=== PATIENT | female | born 1965 | race Caucasian/White ===

== ENCOUNTER 2020-01-08 10:26 | Outpatient (CLI) | payer OTHER, SELFPAY ==
--- NOTE | ~2020-01-08 | NM_ITS ---
EXAMINATION: NM valarie stress w perfusion DATE: 01/08/2020 14:28 INDICATION: Dyspnea on exertion. TECHNIQUE: Rest images were obtained following intravenous administration of 8.4 mCi Tc99m tetrofosmi n (Myoview). The patient was infused intravenously with Lexiscan (regadenoson). Then, 26.1 mCi Tc99m tetrofosmin (Myoview) was administered intravenously, and stress images were obtained. Data was recon structed into short axis and horizontal and vertical long axis SPECT images. Gated SPECT images were also obtained. COMPARISON: None. FINDINGS: There is no definite reversible or fixed perfusion abnormality to suggest ischemia or infar ction. There is no segmental wall motion abnormality. Left ventricular ejection fraction measures > 70%. IMPRESSION: 1. No definite ischemia or infarct. 2. Normal left ventricular ejection fraction measuring >70%. Reviewed, dictated and finalized at location A. TEAM MEMBER
--- NOTE | 2020-01-08 10:35 | EST_ITS ---
Patient Info Name: Sumaya Razo Age: 54 years : 1965 Gender: Female Ht: 64 in Wt: 257 lbs BSA: 2.36 m2 Exam Date: 01/08/2020 12:27 PM Exam Location: [facility] Stress Patient Status: Outpatient Admit Date: 01/08/2020 Staff Ordering Physician: Red Altamirano DO Attending Provider: Red Altamirano DO Exercise Technologist: Salina Grey RDCS Exercise Physician: Red Altamirano DO Exam Type: CA stress valarie w NM Study Info Indications R06.09 - Other forms of dyspnea A regadenoson stress test was performed. Summary 1. 1. Negative Lexiscan stress test for ischemic ST changes by ECG criteria. 2. 2. Stable hemodynamics throughout the test. 3. 3. Nuclear scan to follow and will be reported separately. Please correlate with it. 4. 4. Patient informed of the above results. Protocol: Lexiscan Stress ECG Details Stage: REST Duration (min): 7 min : 24 sec HR (bpm): 84 SBP (mmHg): 124 DBP (mmHg): 93 Stage: REST Duration (min): 10 min : 55 sec HR (bpm): 81 SBP (mmHg): 124 DBP (mmHg): 93 Stage: STAGE 1 Duration (min): 0 min : 59 sec HR (bpm): 91 SBP (mmHg): 115 DBP (mmHg): 91 Stage: RECOVERY Duration (min): 1 min : 0 sec HR (bpm): 101 SBP (mmHg): 130 DBP (mmHg): 85 Stage: RECOVERY Duration (min): 2 min : 0 sec HR (bpm): 95 SBP (mmHg): 130 DBP (mmHg): 85 Stage: RECOVERY Duration (min): 3 min : 0 sec HR (bpm): 94 SBP (mmHg): 119 DBP (mmHg): 84 Stage: RECOVERY Duration (min): 3 min : 3 sec HR (bpm): 93 SBP (mmHg): 119 DBP (mmHg): 84 Rest HR: 81 bpm Peak HR: 104 bpm Rest Sys BP: 124 mmHg Peak Sys BP: 130 mmHg Max Pred HR: 165 bpm % Max Pred HR: 63 % Target HR: 140 bpm Max RPP: 13,520 bpm*mmHg Termination Reason: Completed protocol Cardiac Symptoms: Shortness of breath Total Time: 1 min : 0 sec Rest Kaplan BP: 93 mmHg Peak Kaplan BP: 85 mmHg Total Dose: 0.4 mg Resting ECG Sinus rhythm, RBBB. Stress ECG No ST changes. Arrhythmias None. Report Signatures
== END 2020-01-08 10:27 | disposition home or self-care (01) ==
LOC: ANHCARD 10:29
PROVIDERS: PCP Internal Medicine; Visit Provider Internal Medicine Cardiovascular Disease
DX: R06.09 Other forms of dyspnea (principal)
CPT/HCPCS: 78452; 93017; A9502; J2785

== ENCOUNTER 2024-04-07 15:40 | Observation (INO) | payer BC, SELFPAY ==
[2024-04-07] VITALS (7 sets, daily range): BP systolic 116–146; BP diastolic 73–85; PULSE 65–77; RESP 16–18; TEMP 36.4–36.6; O2SAT 97–100
--- NOTE | ~2024-04-07 | CT_ITS ---
EXAMINATION: CT abdomen pelvis w con DATE: 04/07/2024 19:24 INDICATION: diffuse abd pain, N/V TECHNIQUE: Computed tomography (CT) of the abdomen and pelvis was performed with 100 mL Omnipaque-350 intravenous contrast. Automated exposure control and iterative reconstruction technique were employe d. The dose-length product was 1153.00 mGy-cm. COMPARISON: None. FINDINGS: Lower thorax: Unremarkable Liver: Enlarged. Diffuse fatty infiltration. Biliary/Gallbladder: Gallbladder is normal. No bile duct dilation. Pancreas: No mass or duct dilation. Spleen: Normal. Adrenals:No mass. Kidneys: No suspicious mass, obstructing stone, or hydronephrosis. Bilateral simple cysts. Nonobstruc ting left upper pole calcifications measuring up to 6 mm. GI tract: Moderate distal esophageal and gastric wall edema. No small or large bowel dilation. Dilate d hyperemic appendix, with surrounding inflammatory change and fluid. No evidence of appendiceal wall breakdown, abscess, or microperforation. Diverticulosis without diverticulitis. Mesentery/Peritoneum: No ascites, mass, or free air. Retroperitoneum: No mass. Atherosclerotic abdominal aortic and/or arterial calcifications. Pelvis: Normal urinary bladder, uterus, and left ovary. The right ovary is not confidently visualized . Soft Tissues: Anterior abdominal wall diastases resulting in a large anterior wid[place] hernia contai linda a portion of the stomach and nondilated loops of large and small bowel. Bones: No acute osseous finding. IMPRESSION: Hepatomegaly with steatosis. Moderate esophagitis/gastritis. Acute uncomplicated appendicitis. Large anterior pelvic wall hernia containing nonobstructed loops of large and small bowel and a porti on of the stomach. Reviewed, dictated and finalized at location K. IMPRESSION: Hepatomegaly with steatosis. Moderate esophagitis/gastritis. Acute uncomplicated appendicitis. Large anterior pelvic wall hernia containing nonobstructed loops of large and s mall bowel and a portion of the stomach.
--- NOTE | 2024-04-07 15:49 | ED.ABDPAIN ---
HPI - Abdominal Pain General Chief Complaint: Abdominal Pain <WILTON Johnson Last Filed: 04/07/24 15:58> Stated Complaint: abd pain <WILTON Johnson Last Filed: 04/07/24 15:58> Time Seen by Provider: 04/07/24 15:49 <WILTON Johnson Last Filed: 04/07/24 15:58> Focused HPI: Patient is a 58 y/o female, with pmh of diverticulitis, ventral hernia, sigmoid colectomy in 2019, who presents to the ED with c/o abdominal pain. Patient reports pain became 3 days ago. Present diffusely throughout abdomen. States abdomen feels very bloated and firm. Reports pain worse yesterday, associated with N/V. Still feels nauseous currently. Took Tramadol last night, provided some relief. Took Aleve @ 230pm today. Last had a BM this morning, diarrhea, after using laxative suppository yesterday. Denies rectal bleeding, melena. Denies urinary complaints. GENERAL: Well-appearing, obese with BMI of 37.8, and in no acute distress. HEAD: Normocephalic, atraumatic. CHEST: Clear to auscultation. ?No respiratory distress. HEART: Regular rate and rhythm.? ABD: Diffuse tenderness over gia lateral edges of abdomen, suprapubic region, no rebound. Normoactive BS. NEURO: ?Alert and oriented x3. Patient screened in triage and initial orders placed.? ?Additional care and disposition to be based upon?diagnostic testing and treatment. <WILTON Johnson Last Filed: 04/07/24 15:58> Source: patient <WILTON Johnson Last Filed: 04/07/24 15:58> Mode of arrival: ambulatory <WILTON Johnson Last Filed: 04/07/24 15:58> Limitations: no limitations <WILTON Johnson Last Filed: 04/07/24 15:58> History of Present Illness HPI narrative: Agree with the above note. Upon my evaluation, patient is stating the pain is mostly in her lower abdomen and sides. She states her abdomen felt bloated earlier but feels softer now. She denies dysuria, hematuria, fever. She states her pain is controlled after taking Aleve around 2:30 p.m. today. She is not currently having any nausea. Her prior colectomy and hernia repair were at [facility]. <Lissette Arreola PA-C - Last Filed: 04/07/24 20:16> Related Data Home Medications: Home Medications Medication Instructions Recorded Confirmed magnesium hydroxide 400 mg/5 mL 5 ml PO DAILY PRN 01/07/20 09/26/23 oral suspension (Milk of Magnesia) naproxen sodium 220 mg tablet 220 mg PO Q8H 05/27/20 09/26/23 (Aleve) valerian root 100 mg capsule 100 mg PO DAILY 09/20/20 09/26/23 <Xochitl Trujillo PA-C - Last Filed: 04/07/24 15:58> Allergies/Adverse Reactions: Allergies Allergy/AdvReac Type Severity Reaction Status Date / Time levofloxacin Allergy Unknown Anaphylaxis Verified 04/07/24 17:04 citalopram [From Celexa] AdvReac Intermediate Dizziness Verified 04/07/24 17:04 <Xochitl Trujillo PA-C - Last Filed: 04/07/24 15:58> Review of Systems Review of Systems: CONSTITUTIONAL: Denies fever, chills, or sweats. EYES: Denies visual changes, redness, or discharge. ENT: Denies rhinorrhea, congestion, sore throat, or otalgia. CARDIOVASCULAR: Denies chest pain, palpitations, or edema. RESPIRATORY: Denies cough or dyspnea. GASTROINTESTINAL: See HPI GENITOURINARY: Denies dysuria or hematuria. SKIN: Denies rash or itching. MUSCULOSKELETAL: Denies back pain, joint pain, or myalgia. NEUROLOGIC: Denies headache, numbness, or weakness. PSYCHIATRIC: Denies anxiety or depression. <Lissette Arreola PA-C - Last Filed: 04/07/24 20:16> [facility] Past Medical History Medical History: Medical History Arthritis Colitis History of migraine headaches History of pilonidal cyst Hypertension Weight loss counseling, encounter for <Xochitl Trujillo PA-C - Last Filed: 04/07/24 15:58> Surgical History Surgical History: Surgical
--- NOTE | 2024-04-07 16:11 | PC.NURSE ---
Ozempic shot taken on sunday. Pt states has been on medication for 1year now.
[2024-04-07 16:27] LABS: Basophils Absolute Auto 0.1 K/mm3 (0.0-0.1); Basophils Percent Auto 0.5 % (0.2-1.2); Eosinophils Absolute Auto 0.2 K/mm3 (0-0.3); Eosinophils Percent Auto 1.4 % (0-4.4); Hematocrit 51.3 % (37.0-47.0); Hemoglobin 17.5 g/dL (12.0-15.0); Immature Granulocyte Absolute 0.04 K/mm3 (0.00-0.031); Immature Granulocyte Percent A 0.3 % (0-0.5); Lymphocytes Percent Auto 22.4 % (18.3-44.2); Mean Corpuscular HGB Conc 34.1 g/dl (32-36); Mean Corpuscular Hemoglobin 32.2 pg (26-34); Mean Corpuscular Volume 94.3 fl (80-100); Mean Platelet Volume 10.2 fl (7.4-10.4); Monocytes Absolute Auto 1.1 K/mm3 (0.1-0.6); Neutrophils Percent Auto 67.4 % (45.5-73.1); Platelet Count Result 263 k/mm3 (150-375); Red Blood Count 5.44 M/mm3 (4.2-5.4); Red Cell Distribution Width 13.2 % (11.5-14.5); White Blood Count 13.4 K/mm3 (4.5-10.0)
[2024-04-07 16:29] LABS: Appearance Urine Clear (Clear); Bilirubin Urine Negative (Negative); Blood Urine Negative (Negative); Color Urine Yellow (Yellow); Glucose Urine UA 3+ mg/dL (Negative); Ketones Urine Negative (Negative); Leukocyte Esterase Ur Negative LEU/UL (Negative); Nitrate Urine Negative (Negative); Protein Urine Negative (Negative); Specific Grav Ur 1.014 (1.001-1.035); Urobilinogen Urine 0.2 mg/dL (<2.0); pH Urine 6.5 (5.0-9.0)
[2024-04-07 16:38] LABS: Lactic Acid Reflex 2.1 mmol/L (0.7-2.0)
[2024-04-07 17:14] LABS: Add Urine Microscopic? NO
[2024-04-07] MEDS: SODIUM CHLORIDE 0.9% IV 1,000 ML 999 ML IV CONT (17:20)
[2024-04-07 18:36] LABS: Alanine Aminotransferase 16 U/L (6-35); Albumin Level 3.8 g/dL (3.5-5.1); Alkaline Phosphatase 56 U/L (38-126); Anion Gap 5 mmol/L (4-12); Aspartate Amino Transferase 22 U/L (14-36); Bilirubin,Total 0.8 mg/dL (0.2-1.3); Blood Urea Nitrogen 19 mg/dL (7-17); Calcium 9.2 mg/dL (8.4-10.2); Carbon Dioxide 27 mmol/L (22-30); Chloride 106 mmol/L (98-107); Estimated CRCL calculation 86 ml/min; Estimated Glomerular Filt Rate > 60; Glucose 91 mg/dL (65-110); Lipase 584 U/L (23-300); Potassium 3.6 mmol/L (3.4-5.0); Sodium 138 mmol/L (137-145)
--- NOTE | 2024-04-07 19:10 | PC.NURSE ---
Report given to MILDRED Rayo
[2024-04-07 19:25] LABS: Reflex Lactic Acid Yes or No Add Lactic
[2024-04-07] MEDS: PIPERACILLN/TAZ 3.375GM/NS50ML 3.375 GM/50 ML BAG IVPB (20:22)
--- NOTE | 2024-04-07 20:40 | PM.IMHP ---
H&P: HPI History of Present Illness Date/Time: 04/07/24 20:40 Chief Complaint: abdominal pain Narrative: This is a 58-year-old female with past medical history significant for type diabetes mellitus, hypertension, migraine headaches. Patient presents to the emergency room with abdominal pain for the last 3 days worsening, constipation and diarrhea, chills, nausea, poor per orally intake, poor appetite. Patient also has history of diverticulitis status post sigmoidectomy. Initially attributed her abdominal pain to diverticular disease. In emergency room preliminary workup was significant for CT abdomen and pelvis showed acute appendicitis. Patient has been admitted for further evaluation management and treatment EXAMINATION: CT abdomen pelvis w con DATE: 04/07/2024 19:24 INDICATION: diffuse abd pain, N/V TECHNIQUE: Computed tomography (CT) of the abdomen and pelvis was performed with 100 mL Omnipaque-350 intravenous contrast. Automated exposure control and iterative reconstruction technique were employed. The dose-length product was 1153.00 mGy-cm. COMPARISON: None. FINDINGS: Lower thorax: Unremarkable Liver: Enlarged. Diffuse fatty infiltration.? Biliary/Gallbladder: Gallbladder is normal. No bile duct dilation. Pancreas: No mass or duct dilation. Spleen: Normal. Adrenals:No mass. Kidneys: No suspicious mass, obstructing stone, or hydronephrosis. Bilateral simple cysts. Nonobstructing left upper pole calcifications measuring up to 6 mm. GI tract: Moderate distal esophageal and gastric wall edema. No small or large bowel dilation. Dilated hyperemic appendix, with surrounding inflammatory change and fluid. No evidence of appendiceal wall breakdown, abscess, or microperforation. Diverticulosis without diverticulitis. Mesentery/Peritoneum: No ascites, mass, or free air. Retroperitoneum: No mass. Atherosclerotic abdominal aortic and/or arterial calcifications. Pelvis: Normal urinary bladder, uterus, and left ovary. The right ovary is not confidently visualized. Soft Tissues: Anterior abdominal wall diastases resulting in a large anterior [place] hernia containing a portion of the stomach and nondilated loops of large and small bowel. Bones:? No acute osseous finding. IMPRESSION: Hepatomegaly with steatosis. Moderate esophagitis/gastritis. Acute uncomplicated appendicitis. Large anterior pelvic wall hernia containing nonobstructed loops of large and small bowel and a portion of the stomach. Review of Systems Review of Systems: diffuse abdominal pain, diarrhea, constipation, chills, nausea, poor per orally intake. Constitutional: Constitutional: Reports chills and Reports poor appetite Eyes: Eyes: Denies change in vision ENT: Denies dysphagia and Denies odynophagia Cardiovascular: Cardiovascular: Denies chest pain, Denies radiating jaw, neck or arm pain and Denies palpitations Respiratory: Respiratory: Denies cough and Denies dyspnea Gastrointestinal: Gastrointestinal: Reports abdominal pain, Reports constipation, Reports GI cramping, Reports diarrhea, Reports nausea and Denies vomiting Genitourinary: Genitourinary: Denies dysuria Musculoskeletal: Musculoskeletal: Denies myalgias Integumentary/Breasts: Skin/Breast: Denies rash Neurologic: Denies focal weakness and Denies Sensory deficit (Neuro) Psychiatric: Psychiatric: Reports no additional psychiatric complaints and Reports as per HPI Endocrine: Endocrine: Denies cold intolerance, Denies fatigue, Denies flushing, Denies heat intolerance, Denies polyphagia, Denies polydipsia, Denies polyuria and Denies palpitations Hematologic/Lymphatic: Hematologic/Lymphatic: Reports no additional hematologic/lymphatic complaints and Reports as per HPI Allergic/Immunologic: Allergic/Immunologic: Reports no additional allergic/immunologic complaints and Reports as per HPI [facility] Past Medical History Medical History (Reviewed 04/07/24 @ 17:15 by Lissette Arreola,
[2024-04-07] MEDS: ONDANSETRON INJ 4 MG/2 ML VIAL IV PUSH (21:15)
[2024-04-07] MEDS: MORPHINE SULFATE (*CRX) 2 MG/ML INJ IV PUSH (21:15)
[2024-04-08] MEDS: SODIUM CHLORIDE 0.9% IV 1,000 ML 125 ML IV CONT ×2 (00:16→09:06)
[2024-04-08] MEDS: MORPHINE SULFATE (*CRX) 2 MG/ML INJ IV PUSH ×2 (03:40→09:07)
[2024-04-08] MEDS: PIPERACILLN/TAZ 3.375GM/NS50ML 3.375 GM/50 ML BAG IVPB ×4 (03:40→21:09)
[2024-04-08 06:00] VITALS: BP 135/80; PULSE 67; RESP 16; TEMP 36.5; O2SAT 98
[2024-04-08 08:54] VITALS: PULSE 67; RESP 16; O2SAT 98
[2024-04-08] MEDS: ONDANSETRON INJ 4 MG/2 ML VIAL IV PUSH (08:54)
--- NOTE | 2024-04-08 08:55 | PM.IMPN ---
Progress Note: A&P Assessment and Plan (1) Acute appendicitis: Qualifiers: Acute appendicitis type: unspecified acute appendicitis type Qualified Code(s): K35.80 - Unspecified acute appendicitis Code(s): K35.80 - Unspecified acute appendicitis Status: Acute Plan (1) Acute appendicitis: ?Qualifiers: ?Acute appendicitis type:?unspecified acute appendicitis type? Qualified Code(s):?K35.80 - Unspecified acute appendicitis ?Code(s): K35.80 - Unspecified acute appendicitis ?Status:?Acute ?Assessment and Plan: ?admit to regular medical floor ?NPO ?IV fluids ?general surgery consult ?supportive care 04/08 patient received Zosyn in the ED, patient has leukocytosis, CT scan diagnosed acute appendicitis continue Zosyn IV Follow-up CBC and general surgeon recommendation (2) Hernia: ?Code(s): K46.9 - Unspecified abdominal hernia without obstruction or gangrene ?Status:?Acute ?Assessment and Plan: ?continue to monitor (3) Chronic back pain: ?Code(s): M54.9 - Dorsalgia, unspecified; G89.29 - Other chronic pain ?Status:?Acute ?Assessment and Plan: ?Tylenol p.r.n. (4) Diabetes mellitus: ?Code(s): E11.9 - Type 2 diabetes mellitus without complications ?Status:?Acute ?Assessment and Plan: ?insulin sliding scale as needed (5) Tobacco abuse: ?Code(s): Z72.0 - Tobacco use ?Status:?Acute ?Assessment and Plan: ?nicotine patch as needed Subjective Date/time seen: 04/08/24 08:55 Interval history: I saw and examined the patient in presents of patient's sister in patient room, with patient permission. Patient denies abdomen pain, nausea vomiting diarrhea. Patient afebrile, blood pressure stable, labs reviewed, leukocytosis has resolved Exam Narrative: GENERAL: Pleasant, in no acute distress. Well-nourished. - EYES: EOMI. Anicteric. - HENT: Moist mucous membranes. - LUNGS: Clear to auscultation bilaterally, no wheezing, rhonchi, or rales. - CARDIOVASCULAR: Regular rate and rhythm. No murmur. No JVD. - ABDOMEN: Soft, patient does not have right lower quadrant tender and non-distended. No palpable masses. - EXTREMITIES: No edema. Peripheral pulses 2+. Non-tender. - NEUROLOGIC: No focal neurological deficits. CN II-XII grossly intact. - PSYCHIATRIC: Awake, Alert and oriented x 3. Appropriate mood and affect. - SKIN: No rashes or lesions. Warm. - LYMPH: No cervical lymphadenopathy. Objective Data Vital Signs Vital Signs: Vital Signs - 24 hr 04/07/24 15:40 04/07/24 17:05 04/07/24 18:40 Temperature 97.5 F L Pulse Rate 74 75 65 Respiratory Rate 18 16 18 Blood Pressure 139/85 125/85 139/73 Pulse Oximetry 97 98 100 Oxygen Delivery Room Air 04/07/24 20:23 04/07/24 21:16 04/07/24 22:00 Temperature 98 F Pulse Rate 68 77 65 Respiratory Rate 16 16 16 Blood Pressure 128/82 116/81 146/85 H Pulse Oximetry 100 97 99 Oxygen Delivery 04/07/24 21:25 04/08/24 06:00 Temperature 97.7 F Pulse Rate 67 Respiratory Rate 16 Blood Pressure 135/80 Pulse Oximetry 99 98 Oxygen Delivery Room Air Intake/Output Intake/Output: Intake & Output 04/05/24 04/06/24 04/07/24 04/08/24 23:59 23:59 23:59 23:59 Intake Total 1050 50 Balance 1050 50 Meds/Results Medications: Active Medications Generic Name Dose Route Start Last Admin Trade Name Freq PRN Reason Stop Dose Admin Piperacillin/Tazobactam/Dextrose 3.375 gm in 50 mls @ 100 mls/hr 04/08/24 03:00 04/08/24 08:54 Zosyn 3.375 Gm/Ns 50 Ml IVPB 100 mls/hr Q6H JUVENCIO Administration Sodium Chloride 1,000 mls @ 125 mls/hr 04/07/24 20:20 04/08/24 00:16 Normal Saline Iv IV CONT 125 mls/hr .Q8H JUVENCIO Administration Morphine Sulfate 2 mg 04/07/24 20:16 04/08/24 03:40 Morphine Sulfate (*Crx) 2 Mg/Ml Inj IV PUSH 2 mg Q2H PRN Administration Pain Rated 7-10 Ondansetron HCl 4 mg 04/07/24 20:16 04/08/24
[2024-04-08 09:05] LABS: Alanine Aminotransferase 16 U/L (6-35); Albumin Level 3.7 g/dL (3.5-5.1); Alkaline Phosphatase 53 U/L (38-126); Anion Gap 5 mmol/L (4-12); Aspartate Amino Transferase 21 U/L (14-36); Bilirubin,Total 0.9 mg/dL (0.2-1.3); Blood Urea Nitrogen 20 mg/dL (7-17); Calcium 8.2 mg/dL (8.4-10.2); Carbon Dioxide 23 mmol/L (22-30); Chloride 107 mmol/L (98-107); Estimated CRCL calculation 99 ml/min; Estimated Glomerular Filt Rate > 60; Glucose 99 mg/dL (65-110); Potassium 3.4 mmol/L (3.4-5.0); Sodium 135 mmol/L (137-145)
[2024-04-08] MEDS: LORazepam INJ (*CRX) 2 MG/ML VIAL 0.5 MG IV PUSH (09:06)
--- NOTE | 2024-04-08 09:29 | PM.CNGS ---
Assessment and Plan Assessment and plan (1) Acute appendicitis: Qualifiers: Acute appendicitis type: unspecified acute appendicitis type Qualified Code(s): K35.80 - Unspecified acute appendicitis Code(s): K35.80 - Unspecified acute appendicitis Status: Acute Assessment and Plan: CT evidence of acute uncomplicated appendicitis. WBC normalized today. Pain improved since starting antibiotics. Discussed both surgical and nonoperative treatment options with the patient in detail. She has a history of a colon resection due to diverticulitis and developed a large incisional hernia that was repaired with mesh in 2019. She has recurrence of this hernia with the CT showing a large incisional hernia containing small bowel, colon, and a portion of her stomach in this hernia. There are no signs of obstruction or incarceration. I discussed with the patient that she is a higher risk surgical candidate given her previous abdominal surgeries and recurrent incisional hernia. She would be at an increased risk for converting to an open appendectomy, bowel injury, and bleeding. We also discussed the option of trying to treat the appendicitis conservatively with antibiotics and close monitoring. She would prefer attempting conservative treatment initially. Continue IV Zosyn and analgesics. Will allow clear liquids today and we can advance her diet as tolerated. Will decrease her IV fluids. Repeat her labs tomorrow and continue to monitor closely with serial abdominal exams. (2) Recurrent incisional hernia: Code(s): K43.2 - Incisional hernia without obstruction or gangrene Status: Acute Assessment and Plan: Large recurrent incisional hernia with no signs of obstruction or incarceration. She does have mild symptoms with her hernia and was wanting to work on weight loss to eventually have this surgically repaired. We discussed that if she is successfully treated with antibiotics for appendicitis, then she could discuss possibly having an interval appendectomy at the time of her hernia repair if that is scheduled in the future. (3) Diabetes mellitus: Code(s): E11.9 - Type 2 diabetes mellitus without complications Status: Chronic (4) Hypertension: Qualifiers: Hypertension type: primary hypertension Qualified Code(s): I10 - Essential (primary) hypertension Code(s): I10 - Essential (primary) hypertension Status: Acute (5) Obesity: Code(s): E66.9 - Obesity, unspecified Status: Acute (6) History of partial surgical removal of colon: Code(s): Z90.49 - Acquired absence of other specified parts of digestive tract Status: Acute Assessment and Plan: Sigmoid colectomy in 2018 with takedown of a colovesical fistula during an acute episode of complicated diverticulitis. Plan I have discussed the patient's case and plan of care with Dr. Benítez. Thank you for allowing us to see the patient in consultation and we will continue to follow along with you. History of Present Illness Consult details Consult date: 04/08/24 Reason for consult: other (Acute appendicitis) Requesting physician: Lissette Arreola PA-C Narrative: This is a 58-year-old woman who presented to to the ER last night with complaints of abdominal pain x4 days. She reports having mild generalized abdominal pain starting last Sunday. The pain progressively got worse and Sunday. She was unable to get upper do anything Sunday due to the pain. She developed nausea and began vomiting that night. This woke her up from sleep. Since then, she has not had any more vomiting. She reports bloating and abdominal distention. Her pain was cramping in nature and was ?all over? her abdomen. She reports that migrated more to her lower abdomen. This radiates to her lower back. She reports it is difficult to differentiate her chronic low back pain verses the acute pain. She also reports chills, but did not take
[2024-04-08 09:30] LABS: Basophils Absolute Auto 0.1 K/mm3 (0.0-0.1); Basophils Percent Auto 0.7 % (0.2-1.2); Eosinophils Absolute Auto 0.2 K/mm3 (0-0.3); Eosinophils Percent Auto 2.3 % (0-4.4); Hematocrit 47.6 % (37.0-47.0); Hemoglobin 16.1 g/dL (12.0-15.0); Immature Granulocyte Absolute 0.03 K/mm3 (0.00-0.031); Immature Granulocyte Percent A 0.4 % (0-0.5); Lymphocytes Absolute Auto 1.06 K/mm3 (0.9-3.2); Lymphocytes Percent Auto 12.6 % (18.3-44.2); Mean Corpuscular HGB Conc 33.8 g/dl (32-36); Mean Corpuscular Hemoglobin 32.1 pg (26-34); Mean Corpuscular Volume 94.8 fl (80-100); Mean Platelet Volume 10.4 fl (7.4-10.4); Monocytes Absolute Auto 0.7 K/mm3 (0.1-0.6); Monocytes Percent Auto 8.7 % (2.6-8.5); Neutrophils Absolute Auto 6.3 K/mm3 (1.3-6.7); Neutrophils Percent Auto 75.3 % (45.5-73.1); Platelet Count Result 222 k/mm3 (150-375); Red Blood Count 5.02 M/mm3 (4.2-5.4); Red Cell Distribution Width 13.2 % (11.5-14.5); White Blood Count 8.4 K/mm3 (4.5-10.0)
[2024-04-08 14:00] VITALS: BP 119/81; PULSE 71; RESP 20; TEMP 36.5; O2SAT 97
[2024-04-08] MEDS: ACETAMINOPHEN 325 MG TABLET 650 MG PO (17:17)
[2024-04-08 20:00] VITALS: O2SAT 96
[2024-04-08 20:47] VITALS: BP 132/75; PULSE 67; RESP 14; TEMP 36.6; O2SAT 96
[2024-04-08] MEDS: ALPRAZolam (*CRX) 0.5 MG TABLET PO (21:34)
[2024-04-08] MEDS: TIZANIDINE HCL 4 MG TABLET PO (21:34)
[2024-04-09] MEDS: SODIUM CHLORIDE 0.9% IV 1,000 ML 70 ML IV CONT (01:06)
[2024-04-09] MEDS: PIPERACILLN/TAZ 3.375GM/NS50ML 3.375 GM/50 ML BAG IVPB ×4 (02:19→21:53)
[2024-04-09 05:18] VITALS: BP 124/74; PULSE 66; RESP 13; TEMP 36.1; O2SAT 95
[2024-04-09] MEDS: LEVOTHYROXINE SODIUM 50 MCG TABLET PO (05:22)
--- NOTE | 2024-04-09 07:56 | PM.IMPN ---
Progress Note: A&P Assessment and Plan (1) Acute appendicitis: Qualifiers: Acute appendicitis type: unspecified acute appendicitis type Qualified Code(s): K35.80 - Unspecified acute appendicitis Code(s): K35.80 - Unspecified acute appendicitis Status: Acute (2) Hidradenitis suppurativa: Code(s): L73.2 - Hidradenitis suppurativa Status: Acute Plan (1) Acute appendicitis: ?Qualifiers: ?Acute appendicitis type:?unspecified acute appendicitis type? Qualified Code(s):?K35.80 - Unspecified acute appendicitis ?Code(s): K35.80 - Unspecified acute appendicitis ?Status:?Acute ?Assessment and Plan: ?admit to regular medical floor ?NPO ?IV fluids ?general surgery consult ?supportive care 04/08 patient received Zosyn in the ED, patient has leukocytosis, CT scan diagnosed acute appendicitis continue Zosyn IV Follow-up CBC and general surgeon recommendation 04/09: improving with conservative management continue abx zosyn, can d/c IVF surgery okay with advancing diet. will change to regular diet and see how she tolerates it. passing flatus (2) Hidradenitis suppurativa: ?Code(s): L73.2 - Hidradenitis suppurativa ?Status:?Acute ?Assessment and Plan: Chronic issue for the patient, but began having drainage overnight. There is a very small area of mild left groin hidradenitis with drainage. Surgery added topical clindamycin (5) Tobacco abuse: ?Code(s): Z72.0 - Tobacco use ?Status:?Acute ?Assessment and Plan: ?nicotine patch as needed [place] on cessation Subjective Date/time seen: 04/09/24 07:56 Interval history: 04/09: Patient is seen walking in room doing well. She still has abdominal pain med is greatly improved since admission. She denies nausea or vomiting and is tolerating full liquid diet. Review of Systems Review of Systems: All systems reviewed & are unremarkable except as noted in HPI and below Exam Narrative: General: well appearing, appears stated age. HEENT: normocephalic, atraumatic. Mucous membranes moist. EOMI, PERRLA, bilateral sclera anicteric, no conjunctival injection. Neck supple without JVD, lymphadenopathy, or bruit. Respiratory: clear to auscultation bilaterally. No rales/rhonic/wheezes. Cardiovascular: Regular rate and rhythm, normal S1-S2 upon auscultation. No murmurs, rubs, or clicks. PMI is nondisplaced, capillary refill less than 3 second. Abdomen: Soft, round, no pulsatile masses, mildly tender, with large abdominal hernia which is reproducible, No rebound, no guarding. No CVA tenderness, no hepatosplenomegaly. Bowel sounds present to all four quadrants. No high pitch or tinkling sounds, resonant to percussion. Extremities: No cyanosis, clubbing, or edema present. Pulses are palpable 2/2. Active ROM to all four extremities. Neuro: Alert and orientated x 4. PERRLA. Cranial nerves 2-12 intact without focal deficit. Skin: Warm, dry, and intact, without rash, erythema, or lesion. Lines: Incisions: Psych: pleasant, cooperative, normal speech, normal affect, no hallucinations, no dysarthria Objective Data Vital Signs Vital Signs: Vital Signs - 24 hr 04/08/24 08:54 04/08/24 14:00 04/08/24 20:47 Temperature 97.7 F 97.9 F Pulse Rate 67 71 67 Respiratory Rate 16 20 14 Blood Pressure 119/81 132/75 Pulse Oximetry 98 97 96 Oxygen Delivery Room Air 04/08/24 20:00 04/09/24 05:18 Temperature 96.9 F L Pulse Rate 66 Respiratory Rate 13 Blood Pressure 124/74 Pulse Oximetry 96 95 Oxygen Delivery Room Air Intake/Output Intake/Output: Intake & Output 04/06/24 04/07/24 04/08/24 04/09/24 23:59 23:59 23:59 23:59 Intake Total 1050 3776.0 550 Balance 1050 3776.0 550 Meds/Results Medications: Active Medications Generic Name Dose Route Start Last Admin Trade Name Freq PRN Reason Stop Dose Admin Acetaminophen 650 mg 04/08/24 09:58
[2024-04-09 08:00] VITALS: PULSE 66; RESP 13; O2SAT 95
[2024-04-09 08:59] LABS: Basophils Absolute Auto 0.1 K/mm3 (0.0-0.1); Eosinophils Absolute Auto 0.3 K/mm3 (0-0.3); Eosinophils Percent Auto 5.4 % (0-4.4); Hematocrit 45.9 % (37.0-47.0); Hemoglobin 15.6 g/dL (12.0-15.0); Immature Granulocyte Absolute 0.01 K/mm3 (0.00-0.031); Immature Granulocyte Percent A 0.2 % (0-0.5); Lymphocytes Absolute Auto 1.09 K/mm3 (0.9-3.2); Lymphocytes Percent Auto 17.7 % (18.3-44.2); Mean Corpuscular Hemoglobin 32.2 pg (26-34); Mean Corpuscular Volume 94.8 fl (80-100); Mean Platelet Volume 10.2 fl (7.4-10.4); Monocytes Absolute Auto 0.6 K/mm3 (0.1-0.6); Monocytes Percent Auto 8.9 % (2.6-8.5); Neutrophils Absolute Auto 4.1 K/mm3 (1.3-6.7); Neutrophils Percent Auto 66.8 % (45.5-73.1); Platelet Count Result 231 k/mm3 (150-375); Red Blood Count 4.84 M/mm3 (4.2-5.4); White Blood Count 6.2 K/mm3 (4.5-10.0)
[2024-04-09 09:16] LABS: Alanine Aminotransferase 16 U/L (6-35); Albumin Level 3.2 g/dL (3.5-5.1); Alkaline Phosphatase 51 U/L (38-126); Anion Gap 5 mmol/L (4-12); Aspartate Amino Transferase 25 U/L (14-36); Bilirubin,Total 0.6 mg/dL (0.2-1.3); Blood Urea Nitrogen 14 mg/dL (7-17); Calcium 8.1 mg/dL (8.4-10.2); Carbon Dioxide 23 mmol/L (22-30); Chloride 110 mmol/L (98-107); Estimated CRCL calculation 99 ml/min; Estimated Glomerular Filt Rate > 60; Glucose 99 mg/dL (65-110); Magnesium 1.9 mg/dL (1.6-2.3); Potassium 3.6 mmol/L (3.4-5.0); Sodium 138 mmol/L (137-145)
[2024-04-09] MEDS: LOSARTAN POTASSIUM 100 MG TABLET PO (09:26)
[2024-04-09] MEDS: hydroCHLOROthiazide 6.25 MG TABLET PO (09:26)
[2024-04-09] MEDS: MAGNESIUM HYDROXIDE SUSP 30 ML UDC PO (09:26)
[2024-04-09] MEDS: GABAPENTIN 300 MG CAPSULE PO ×3 (09:26→18:03)
[2024-04-09] MEDS: EMPAGLIFLOZIN 10 MG TABLET PO (09:26)
--- NOTE | 2024-04-09 11:20 | PM.PNGS ---
Progress Note: A&P Assessment and Plan (1) Acute appendicitis: Qualifiers: Acute appendicitis type: unspecified acute appendicitis type Qualified Code(s): K35.80 - Unspecified acute appendicitis Code(s): K35.80 - Unspecified acute appendicitis Status: Acute Assessment and Plan: Clinically improving with conservative management/antibiotics. WBC normalized. Continue IV Zosyn Will advance to a regular diet today (2) Hidradenitis suppurativa: Code(s): L73.2 - Hidradenitis suppurativa Status: Acute Assessment and Plan: Chronic issue for the patient, but began having drainage overnight. There is a very small area of mild left groin hidradenitis with drainage. Will add topical clindamycin. Plan I have discussed the patient's case and plan of care with Dr. Benítez. Subjective Subjective Date/Time Seen: 04/09/24 11:20 Patient reports: feels better, tolerating liquids well, flatus and afebrile Interval history: Patient states her abdominal pain has improved since yesterday. She has only been taking Tylenol for the pain today. Denies nausea or vomiting. Doing well with liquids. She was awake through the night with chills and concern of drainage from her left groin. Reports a history of hidradenitis, and she began having drainage in the same location last night. She noticed bloody drainage when wiping. Her left groin does have some mild tenderness in the area where she is having drainage. She also mentions concern with recurrent pilonidal cyst. She had excision of a pilonidal cyst years ago, but has noticed some intermittent pain in this area. No drainage Exam Const: General: comfortable and no acute distress Orientation/consciousness: patient oriented x3 GI: Inspection: non-distended GI Palp: Yes Soft to palpation, Yes Tenderness to palpation present (GI) (Less diffuse tenderness, RLQ and RUQ TTP still today but improved), No Guarding due to palpation present (GI), Yes Hernia present (Large incisional hernia that is soft and reducible, nontender) and No Rebound tenderness present Auscultation: normal bowel sounds Other: Scarring and tunnels noted on bilateral groin consistent with hidradenitis suppurativa. Left groin has a small area that is slightly indurated with purulent bloody drainage and mildly tender, only 1-2 cm area. No obvious fluctuant abscess. Gluteal crease also evaluated due to her complaints and shows a large scar from previous excision of pilonidal cyst, there is a punctate opening just right of the scar, but no erythema, no induration, and no drainage. No signs of infection. Objective Data Vital Signs Vital Signs: Vital Signs - 24 hr 04/08/24 14:00 04/08/24 20:47 04/08/24 20:00 Temperature 97.7 F 97.9 F Pulse Rate 71 67 Respiratory Rate 20 14 Blood Pressure 119/81 132/75 Pulse Oximetry 97 96 96 Oxygen Delivery Room Air 04/09/24 05:18 Temperature 96.9 F L Pulse Rate 66 Respiratory Rate 13 Blood Pressure 124/74 Pulse Oximetry 95 Oxygen Delivery Intake/Output Intake/Output: Intake & Output 04/06/24 04/07/24 04/08/24 04/09/24 23:59 23:59 23:59 23:59 Intake Total 1050 3776.0 550 Balance 1050 3776.0 550 Meds/Results Medications: Active Medications Generic Name Dose Route Start Last Admin Trade Name Freq PRN Reason Stop Dose Admin Acetaminophen 650 mg 04/08/24 09:58 04/08/24 17:17 Acetaminophen 325 Mg Tablet PO 650 mg Q4H PRN Administration Mild Pain (1-3) or Fever Hydrocodone Bitart/Acetaminophen 1 tab 04/08/24 09:58 Hydrocodone/Acetaminophen (*Crx) 5-325 Mg Tablet PO Q4H PRN Pain Rated 4-6 Hydrocodone Bitart/Acetaminophen 1 tab 04/08/24 09:58 Hydrocodone/Acetaminophen (*Crx) 10-325 Mg Tablet PO Q6H PRN Pain Rated 7-10 Alprazolam 0.5 mg 04/08/24 21:15 04/08/24 21:34 Alprazolam (*Crx) 0.5 Mg Tablet PO 0.5 mg BID PRN Administration anxiety Empagli
[2024-04-09 14:00] VITALS: BP 134/85; PULSE 77; RESP 16; TEMP 36.1; O2SAT 97
[2024-04-09 21:08] VITALS: BP 121/73; PULSE 65; RESP 13; TEMP 36.7; O2SAT 96
[2024-04-09] MEDS: TIZANIDINE HCL 4 MG TABLET PO (21:52)
[2024-04-09] MEDS: HYDROcodone/acetaminophen (*CRX) 5-325 MG TABLET 1 TAB PO (21:55)
[2024-04-10] MEDS: PIPERACILLN/TAZ 3.375GM/NS50ML 3.375 GM/50 ML BAG IVPB ×2 (03:00→08:51)
[2024-04-10] MEDS: ACETAMINOPHEN 325 MG TABLET 650 MG PO (03:49)
[2024-04-10 05:13] VITALS: BP 114/55; PULSE 56; RESP 12; TEMP 36.2; O2SAT 96
[2024-04-10] MEDS: LEVOTHYROXINE SODIUM 50 MCG TABLET PO (05:59)
[2024-04-10 06:29] LABS: Basophils Absolute Auto 0.1 K/mm3 (0.0-0.1); Basophils Percent Auto 1.1 % (0.2-1.2); Eosinophils Absolute Auto 0.5 K/mm3 (0-0.3); Hematocrit 44.4 % (37.0-47.0); Immature Granulocyte Absolute 0.02 K/mm3 (0.00-0.031); Immature Granulocyte Percent A 0.4 % (0-0.5); Lymphocytes Absolute Auto 1.58 K/mm3 (0.9-3.2); Lymphocytes Percent Auto 28.6 % (18.3-44.2); Mean Corpuscular HGB Conc 33.8 g/dl (32-36); Mean Corpuscular Hemoglobin 31.6 pg (26-34); Mean Corpuscular Volume 93.7 fl (80-100); Mean Platelet Volume 10.4 fl (7.4-10.4); Monocytes Absolute Auto 0.7 K/mm3 (0.1-0.6); Monocytes Percent Auto 11.8 % (2.6-8.5); Neutrophils Absolute Auto 2.7 K/mm3 (1.3-6.7); Neutrophils Percent Auto 49.1 % (45.5-73.1); Platelet Count Result 228 k/mm3 (150-375); Red Blood Count 4.74 M/mm3 (4.2-5.4); Red Cell Distribution Width 12.9 % (11.5-14.5); White Blood Count 5.5 K/mm3 (4.5-10.0)
[2024-04-10 06:53] LABS: Alanine Aminotransferase 17 U/L (6-35); Albumin Level 3.4 g/dL (3.5-5.1); Alkaline Phosphatase 54 U/L (38-126); Anion Gap 2 mmol/L (4-12); Aspartate Amino Transferase 27 U/L (14-36); Bilirubin,Total 0.6 mg/dL (0.2-1.3); Blood Urea Nitrogen 11 mg/dL (7-17); Calcium 8.5 mg/dL (8.4-10.2); Carbon Dioxide 26 mmol/L (22-30); Chloride 109 mmol/L (98-107); Estimated CRCL calculation 99 ml/min; Estimated Glomerular Filt Rate > 60; Glucose 97 mg/dL (65-110); Magnesium 2.1 mg/dL (1.6-2.3); Potassium 3.5 mmol/L (3.4-5.0); Sodium 137 mmol/L (137-145)
[2024-04-10] MEDS: EMPAGLIFLOZIN 10 MG TABLET PO (08:51)
[2024-04-10] MEDS: GABAPENTIN 300 MG CAPSULE PO (08:51)
[2024-04-10] MEDS: LOSARTAN POTASSIUM 100 MG TABLET PO (08:51)
[2024-04-10] MEDS: hydroCHLOROthiazide 6.25 MG TABLET PO (08:51)
--- NOTE | 2024-04-10 09:02 | PM.DS ---
DS: Admitting Diagnosis Discharge Date 04-10 Admitting Diagnosis Abdominal pain DS: Discharge Diagnosis Discharge Diagnosis (1) Acute appendicitis: Qualifiers: Acute appendicitis type: unspecified acute appendicitis type Qualified Code(s): K35.80 - Unspecified acute appendicitis Code(s): K35.80 - Unspecified acute appendicitis Status: Acute (2) Hidradenitis suppurativa: Code(s): L73.2 - Hidradenitis suppurativa Status: Acute Plan (1) Acute appendicitis: ?Qualifiers: ?Acute appendicitis type:?unspecified acute appendicitis type? Qualified Code(s):?K35.80 - Unspecified acute appendicitis ?Code(s): K35.80 - Unspecified acute appendicitis ?Status:?Acute ?Assessment and Plan: ?admit to regular medical floor ?NPO ?IV fluids ?general surgery consult ?supportive care 04/08 patient received Zosyn in the ED, patient has leukocytosis, CT scan diagnosed acute appendicitis continue Zosyn IV Follow-up CBC and general surgeon recommendation 04/09: improving with conservative management continue abx zosyn, can d/c IVF surgery okay with advancing diet. will change to regular diet and see how she tolerates it. passing flatus 04/10: Leukocytosis has resolved Tolerating a regular diet If okay with surgery I expect discharge today with oral antibiotics (2) Hidradenitis suppurativa: ?Code(s): L73.2 - Hidradenitis suppurativa ?Status:?Acute ?Assessment and Plan: Chronic issue for the patient, but began having drainage overnight. There is a very small area of mild left groin hidradenitis with drainage. Surgery added topical clindamycin (5) Tobacco abuse: ?Code(s): Z72.0 - Tobacco use ?Status:?Acute ?Assessment and Plan: ?nicotine patch as needed [place] on cessation DS: Summary Hospital Course Reason for hospitalization: Acute appendicitis Hospital Course: This is a 58-year-old female with past medical history significant for type diabetes mellitus, hypertension, migraine headaches.? Patient presents to the emergency room with abdominal pain for the last 3 days worsening, constipation and diarrhea, chills, nausea, poor per orally intake, poor appetite.? Patient also has history of diverticulitis status post sigmoidectomy.? Initially attributed her abdominal pain to diverticular disease.? In emergency room preliminary workup was significant for CT abdomen and pelvis showed acute appendicitis. Surgery was consulted and was decided that she would continue with medical management. She was started on Zosyn IV fluids. Her clinical picture improved and her pain resolved. He is tolerating regular diet. Labs and vitals have been reviewed and are stable. She can discharge in stable condition home. 04/10: DOing well today. Tolerating a regular diet. Having bowel movements and denies abdominal pain. Okay to discharge home with follow up at Wikeria's office at completion of antibioitc therapy. Time Spent with Patient Time attestation: Total time spent providing and/or coordinating discharge services: 65 Exam Narrative: General: well appearing, appears stated age. HEENT: normocephalic, atraumatic. Mucous membranes moist. EOMI, PERRLA, bilateral sclera anicteric, no conjunctival injection. Neck supple without JVD, lymphadenopathy, or bruit. Respiratory: clear to auscultation bilaterally. No rales/rhonic/wheezes. Cardiovascular: Regular rate and rhythm, normal S1-S2 upon auscultation. No murmurs, rubs, or clicks. PMI is nondisplaced, capillary refill less than 3 second. Abdomen: Soft, round, no pulsatile masses, minimally tender, with large abdominal hernia which is reproducible, No rebound, no guarding. No CVA tenderness, no hepatosplenomegaly. Bowel sounds present to all four quadrants. No high pitch or tinkling sounds, resonant to percussion. Extremities: No cyanosis, clubbing, or edema present. Pulses are palpable 2/2.
[2024-04-10 10:17] VITALS: O2SAT 94
--- NOTE | 2024-04-10 10:37 | PM.PNGS ---
Progress Note: A&P Assessment and Plan (1) Acute appendicitis: Qualifiers: Acute appendicitis type: unspecified acute appendicitis type Qualified Code(s): K35.80 - Unspecified acute appendicitis Code(s): K35.80 - Unspecified acute appendicitis Status: Acute Assessment and Plan: OK to discharge from surgical standpoint. Recommend 7-10 more days of antibiotics at home Will have patient f/u to discuss any further treatment recommendations. (2) Hidradenitis suppurativa: Code(s): L73.2 - Hidradenitis suppurativa Status: Acute Assessment and Plan: Chronic issue for the patient, but began having drainage overnight. There is a very small area of mild left groin hidradenitis with drainage. Will add topical clindamycin. (3) Recurrent incisional hernia: Code(s): K43.2 - Incisional hernia without obstruction or gangrene Status: Acute Assessment and Plan: Will have to discuss further at follow up appointment, and likely get old operative reports to review. This is a very large hernia that will be very complex to repair. Subjective Subjective Date/Time Seen: 04/10/24 10:37 Interval history: Tolerating diet. No more abdominal pain. No fevers. Exam Const: General: comfortable and no acute distress Orientation/consciousness: patient oriented x3 GI: Inspection: non-distended GI Palp: Yes Soft to palpation, No Tenderness to palpation present (GI), No Guarding due to palpation present (GI), Yes Hernia present (Large incisional hernia that is soft and reducible, nontender) and No Rebound tenderness present Auscultation: normal bowel sounds Other: Scarring and tunnels noted on bilateral groin consistent with hidradenitis suppurativa. Left groin has a small area that is slightly indurated with purulent bloody drainage and mildly tender, only 1-2 cm area. No obvious fluctuant abscess. Gluteal crease also evaluated due to her complaints and shows a large scar from previous excision of pilonidal cyst, there is a punctate opening just right of the scar, but no erythema, no induration, and no drainage. No signs of infection. Objective Data Vital Signs Vital Signs: Vital Signs - 24 hr 04/09/24 14:00 04/09/24 21:08 04/09/24 20:15 Temperature 36.1 C L 36.7 C Pulse Rate 77 65 Respiratory Rate 16 13 Blood Pressure 134/85 121/73 Pulse Oximetry 97 96 Oxygen Delivery Room Air 04/10/24 05:13 04/10/24 10:17 Temperature 36.2 C L Pulse Rate 56 L Respiratory Rate 12 Blood Pressure 114/55 L Pulse Oximetry 96 94 Oxygen Delivery Room Air Intake/Output Intake/Output: Intake & Output 04/07/24 04/08/24 04/09/24 04/10/24 23:59 23:59 23:59 23:59 Intake Total 1050 3776.0 1180 918 Output Total 4 Balance 1050 3776.0 1176 918 Meds/Results Medications: Active Medications Generic Name Dose Route Start Last Admin Trade Name Freq PRN Reason Stop Dose Admin Acetaminophen 650 mg 04/08/24 09:58 04/10/24 03:49 Acetaminophen 325 Mg Tablet PO 650 mg Q4H PRN Administration Mild Pain (1-3) or Fever Hydrocodone Bitart/Acetaminophen 1 tab 04/08/24 09:58 04/09/24 21:55 Hydrocodone/Acetaminophen (*Crx) 5-325 Mg Tablet PO 1 tab Q4H PRN Administration Pain Rated 4-6 Hydrocodone Bitart/Acetaminophen 1 tab 04/08/24 09:58 Hydrocodone/Acetaminophen (*Crx) 10-325 Mg Tablet PO Q6H PRN Pain Rated 7-10 Alprazolam 0.5 mg 04/08/24 21:15 04/08/24 21:34 Alprazolam (*Crx) 0.5 Mg Tablet PO 0.5 mg BID PRN Administration anxiety Clindamycin Phosphate 1 applic 04/09/24 21:00 04/10/24 03:57 Clindamycin Phos 1% 30 Gm Gel TOPICAL Not Given Q12HR JUVENCIO Empagliflozin 10 mg 04/09/24 09:00 04/10/24 08:51 Empagliflozin 10 Mg Tablet PO 10 mg DAILY JUVENCIO Administration Gabapentin 300 mg 04/09/24 09:00 04/10/24 08:51 Gabapentin 300 Mg Capsule PO 300 mg TID JUVENCIO Administration Hydroc
[2024-04-10] MEDS: AMOXICILLIN/CLAVULANATE K 875-125 MG TAB 1 TABLET PO (12:02)
[2024-04-10] MEDS: metroNIDAZOLE 500 MG TABLET PO (12:02)
[2024-04-10] MEDS: CLINDAMYCIN PHOS 1% 30 GM GEL 1 APPLIC TOPICAL (12:02)
== END 2024-04-10 13:50 | disposition home or self-care (01) ==
LOC: ANHED 20:16 → ANH3MEDSUR 04-08 08:30
PROVIDERS: Nurse Practitioner; Nurse Practitioner Acute Care; Physician Assistant; Admitting Provider Internal Medicine; Emergency Provider Physician Assistant; PCP Nurse Practitioner Family; Visit Provider General Practice
DX: K35.80 Unspecified acute appendicitis (principal); K43.2 Incisional hernia without obstruction or gangrene; L73.2 Hidradenitis suppurativa; I10 Essential (primary) hypertension; E89.0 Postprocedural hypothyroidism; E11.9 Type 2 diabetes mellitus without complications; M54.9 Dorsalgia, unspecified; G89.29 Other chronic pain; Z90.49 Acquired absence of other specified parts of digestive tract; Z87.19 Personal history of other diseases of the digestive system; Z87.891 Personal history of nicotine dependence; Z79.85 Long-term (current) use of injectable non-insulin antidiabetic drugs; Z79.891 Long term (current) use of opiate analgesic; E66.9 Obesity, unspecified; Z68.37 Body mass index [BMI] 37.0-37.9, adult
CPT/HCPCS: 36415; 74177; 80053; 81003; 83605; 83690; 83735; 85025; 87040; 96361; 96365; 96375; 96376; 99285; A9270; G0378; J2060; J2270; J2405; J2543; J7030; Q9967

== ENCOUNTER 2024-06-03 12:06 | Outpatient (CLI) | payer BC, SELFPAY ==
--- NOTE | 2024-06-03 13:29 | ECG_ITS ---
Test Date: 2024-06-03 13:44:26 Measurements Intervals Mitchell Rate: 64 P: 46 SC: 133 QRS: -27 QRSD: 123 T: 19 QT: 391 QTc: 403 Interpretive Statements SINUS RHYTHM BORDERLINE LEFT AXIS DEVIATION [QRS AXIS < -20] RIGHT BUNDLE BRANCH BLOCK LEFT VENTRICULAR HYPERTROPHY BORDERLINE ST-T WAVE ABNORMALITY- LATERAL LEADS ABNORMAL ECG No previous ECG available for comparison Electronically Signed On 06-03-2024 13:57:42 CDT by Red Altamirano D.O.
[2024-06-03 14:41] LABS: Hematocrit 50.6 % (37.0-47.0); Hemoglobin 16.8 g/dL (12.0-15.0); Mean Corpuscular HGB Conc 33.2 g/dl (32-36); Mean Corpuscular Hemoglobin 31.7 pg (26-34); Mean Corpuscular Volume 95.5 fl (80-100); Mean Platelet Volume 10.2 fl (7.4-10.4); Platelet Count Result 270 k/mm3 (150-375); Red Cell Distribution Width 13.1 % (11.5-14.5); White Blood Count 7.5 K/mm3 (4.5-10.0)
[2024-06-03 14:52] LABS: INR 0.9; Prothrombin Time 12.8 Seconds (11.1-14.7)
[2024-06-03 14:53] LABS: Anion Gap 6 mmol/L (4-12); Blood Urea Nitrogen 28 mg/dL (7-17); Calcium 9.5 mg/dL (8.4-10.2); Carbon Dioxide 32 mmol/L (22-30); Chloride 100 mmol/L (98-107); Estimated Glomerular Filt Rate > 60; Glucose 101 mg/dL (65-110); Potassium 4.3 mmol/L (3.4-5.0); Sodium 138 mmol/L (137-145)
[2024-06-03 15:17] LABS: Urine Cotinine NEGATIVE
[2024-06-04 19:58] LABS: Hemoglobin A1C 6.4 % (<5.7)
== END 2024-06-03 12:07 | disposition home or self-care (01) ==
LOC: ANHSURGERY 12:10
PROVIDERS: PCP Physician Assistant Medical; Visit Provider Surgery
DX: Z01.818 Encounter for other preprocedural examination (principal); K43.0 Incisional hernia with obstruction, without gangrene; K35.80 Unspecified acute appendicitis; I10 Essential (primary) hypertension; I45.10 Unspecified right bundle-branch block; R94.31 Abnormal electrocardiogram [ECG] [EKG]
CPT/HCPCS: 80048; 80307; 83036; 85027; 85610; 93005

== ENCOUNTER 2024-06-18 16:38 | Inpatient (IN) | payer BC, SELFPAY ==
[2024-06-03 12:02] VITALS: BP 148/88; PULSE 69; RESP 16; TEMP 37.6; O2SAT 98
--- NOTE | 2024-06-03 12:15 | PC.NURSE ---
Report to the Outpatient Waiting Room, entrance under the green pavilion located off [facility], at time ____7:OOAM___ on date 06/10/24 . Planned Procedure Time: ____9:00AM____. Time changes happen often and if your time is changed the preop area will call you the afternoon before. - You and your visitor will be asked to self-screen and do not enter if you have any COVID symptoms. - A mask is optional within the hospital at this time. Patients may have clear liquids (water, carbonated beverages, clear teas, apple juice) until 3 hours prior to surgery with a maximum of 20 ounces. - No food from midnight until time of surgery Take the following medications with a SIP of water the morning of surgery: LEVOTHYROXINE. You can take ALPRAZOLAM, TRADADOL AND HYDROCODONE, AND GABAPENTIN PRN THAT AM IF NEEDED. DO NOT STOP ANY OF YOUR OTHER PRESCRIPTION MEDICATIONS PRIOR TO SURGERY ?EXCEPT THE FOLLOWING Medications to discontinue per physician ___HOLD ALL VITAMINS AND SUPPLEMENTS 3 DAYS PRIOR TO PROCEDURE, Date to take last dose___06/06/24 Please no make-up, nail chinese, hairspray, perfume, deodorant, or body powder the day of surgery. No jewelry (including any body piercings) or valuables the day of surgery, leave them at home. Please take a shower or bath the night before, or the morning of, surgery with an antibacterial soap. Wear comfortable, loose fitting clothing. - Jewelry must be removed prior to entering the operating room. Rings and piercings that are not removed may be cut off. - The hospital will not accept responsibility for valuables. - Please leave all valuables, including medications, at home the day of surgery. If you are going home after surgery, a licensed commercial collections driver must drive you home. - NO public transportation without another adult if you receive anesthesia. - We recommend that an adult stay with you for 24 hours following discharge. - We also recommend that you do not drive, make important decision, drink alcoholic beverages, or take any drugs that were not prescribed by your health care provider for at least 24 hours after your discharge time. Follow any additional instructions given to you from your surgeon. If you or anyone in your household have experienced Covid symptoms in the past week, please notify your surgeon or the nurse liaison at the phone number below for possible testing. Telephone instructions given to ___PATIENT and asked if any additional questions and then verbalized understanding. Patient advised to call surgeon office or pre surgery nurse liaison [phone] if any additional questions.
[2024-06-03 12:39] VITALS: BMI 38.2
--- NOTE | 2024-06-12 14:51 | PC.NURSE ---
Report to the Outpatient Waiting Room, entrance under the green pavilion located off [facility], at time _0730 on date _06/18/24__. Planned Procedure Time: _929 _. Time changes happen often and if your time is changed the preop area will call you the afternoon before. - You and your visitor will be asked to self-screen and do not enter if you have any COVID symptoms. - A mask is optional within the hospital at this time. Patients may have clear liquids (water, carbonated beverages, clear teas, apple juice) until 3 hours prior to surgery with a maximum of 20 ounces. - No food from midnight until time of surgery - Infants may have breast milk until 4 hours before surgery, infant formula 6 hours prior to surgery. - Children will be allowed to drink immediately following surgery. If applicable, please bring a bottle or sippy cup to assist with drinking. Juice, water, soda, and popsicles are readily available. For infants on formula, please bring formula the day of surgery. Pacifiers are allowed. Take the following medications with a SIP of water the morning of surgery: ____levothyroxine, tramadol, hydrocodone, alprazolam, gabapentin if needed DO NOT STOP ANY OF YOUR OTHER PRESCRIPTION MEDICATIONS PRIOR TO SURGERY ?EXCEPT THE FOLLOWING Medications to discontinue per physician vitamins/ suppliments Date to take last dose__06/15/24 Please no make-up, nail spanish, hairspray, perfume, deodorant, or body powder the day of surgery. No jewelry (including any body piercings) or valuables the day of surgery, leave them at home. Please take a shower or bath the night before, or the morning of, surgery with hibiclens antibacterial soap. Wear comfortable, loose fitting clothing. Children are encouraged to wear pajamas. - Jewelry must be removed prior to entering the operating room. Rings and piercings that are not removed may be cut off. - The hospital will not accept responsibility for valuables. - Please leave all valuables, including medications, at home the day of surgery. If you are going home after surgery, a licensed tractor trailer driver must drive you home. - NO public transportation without another adult if you receive anesthesia. - We recommend that an adult stay with you for 24 hours following discharge. - We also recommend that you do not drive, make important decision, drink alcoholic beverages, or take any drugs that were not prescribed by your health care provider for at least 24 hours after your discharge time. For Pediatric surgeries, we recommend two adults accompany the child home. Follow any additional instructions given to you from your surgeon. If you or anyone in your household have experienced Covid symptoms in the past week, please notify your surgeon or the nurse liaison at the phone number below for possible testing. Telephone instructions given to _patient__and asked if any additional questions and then verbalized understanding. Patient advised to call surgeon office or pre surgery nurse liaison [phone] if any additional questions.
--- NOTE | 2024-06-12 14:57 | PC.NURSE ---
PT DENIES ANY CHANGE IN HEALTH SINCE PRIOR INTERVIEW. NEW INSTRUCTIONS GIVEN. PT DENIES ANY QUESTIONS.
[2024-06-18] VITALS (21 sets, daily range): BP systolic 100–133; BP diastolic 61–85; PULSE 67–101; RESP 10–20; TEMP 35.6–36.4; O2SAT 89–100
[2024-06-18 08:08] LABS: Glucose Point of Care 106 mg/dl (65-105)
[2024-06-18] MEDS: KETOROLAC 15 MG/ML VIAL (*BKC) IV PUSH (08:20)
[2024-06-18] MEDS: ACETAMINOPHEN 500 MG TABLET 1000 MG PO (08:20)
--- NOTE | 2024-06-18 09:20 | PM.IMHP ---
H&P: HPI History of Present Illness Date/Time: 06/18/24 09:20 Chief Complaint: Recurrent Incisional hernia Narrative: This is a 58-year-old woman who presents for repair of a recurrent incarcerated incisional hernia. She has a large hernia containing loops of bowel and has had a prior open repair with mesh. She recently had an episode of acute appendicitis which was treated with antibiotics and she appeared to recover. Discussions were made with the patient about treatment options for both the recurrent incisional hernia and appendicitis. She reports no changes since last seen in the office. Review of Systems Review of Systems: All systems reviewed & are unremarkable except as noted in HPI and below Constitutional: Constitutional: Denies chills, Denies fever(s), Denies headache(s) and Denies weight loss Eyes: Eyes: Denies change in vision ENT: Denies dizziness, Denies headache(s), Denies neck mass and Denies throat swelling Cardiovascular: Cardiovascular: Denies chest pain, Denies lightheadedness and Denies dyspnea Respiratory: Respiratory: Denies cough, Denies dyspnea and Denies wheezing Gastrointestinal: Gastrointestinal: Denies abdominal pain, Denies change in bowel habits, Denies nausea and Denies vomiting Genitourinary: Genitourinary: Denies hematuria and Denies dysuria Musculoskeletal: Musculoskeletal: Reports as per HPI Integumentary/Breasts: Skin/Breast: Reports as per HPI Neurologic: Denies dizziness and Denies headache(s) Allergic/Immunologic: Allergic/Immunologic: Denies throat swelling and Denies wheezing PMFSH Past Medical History Medical History Arthritis Colitis Diabetes mellitus History of migraine headaches History of pilonidal cyst Hypertension Weight loss counseling, encounter for Surgical History Surgical History H/O bilateral oophorectomy at age 15, open H/O thyroidectomy History of incisional hernia repair 2019 - open incisional hernia repair with mesh History of loop electrical excision procedure (LEEP) History of partial surgical removal of colon Open sigmoid colectomy for diverticulitis with takedown of colovesical fistula in 2018 Family History Family History Father Hypertension Family history of elevated blood lipids Patient's father is Diabetes mellitus Family history of anemia Family history of cardiovascular disease Family history of colitis Family history of irritable bowel syndrome Mother Hypertension Family history of elevated blood lipids Family history of malignant neoplasm of breast in first degree relative Family history of anemia Sibling Family history of lupus erythematosus Other Asthma Cerebrovascular accident Depression Family history of Alzheimer's disease Family history of arthritis Family history of blood dyscrasia Family history of congestive heart failure Family history of malignant neoplasm Family history of obesity Family history of osteoporosis Social History Social History Smoking packs per day: 1 Smoking cigarettes per day: 20.0 Years smoked: 40 Smoking pack-years: 40.00 Smoking status: Former smoker Tobacco type: cigarettes Second hand tobacco smoke exposure: No Smoking end date: 04/24/24 Alcohol intake: never Substance use: never Substance use type: does not use Do You Feel Safe in your Home?: Yes Lack of Transportation: No Lack of Food: Never True Current Housing: I Have Housing Concerned About Future Housing: No Difficulty Paying Gas/Electric Bills: No Difficulty Paying for Meds: No Currently Unemployed: No Education: High School Diploma/GED Difficulty w/ Childcare or Family Care: No Living arrangements: alone Spiritual care concerns: N
--- NOTE | 2024-06-18 09:23 | WPDHPUPDATE1 ---
History and Physical Update Update Date/Time: 06/18/24 09:23 History and Physical has been reviewed, including an updated exam of the patient. There are NO changes in the patient's condition. Risks, benefits, and alternatives have been discussed and questions answered. Patient agrees to proceed with procedure.
--- NOTE | 2024-06-18 09:28 | WPDANESEPPF ---
Anes - Initial Pre Proc Eval Procedure: Operation Date: 06/18/24 09:30 Proposed Procedures p Open Recurrent Incarcerated Incisional Hernia Repair with Mesh, Bilateral Component Separation with Removal of Old Mesh, - Nelson Benítez DO s Open Appendectomy - Nelson Benítez DO Date/Time: 06/18/24 09:28 Surgeon: Nelson Benítez DO Pre Op Diagnosis: incarcerated incisional hernia Patient Data Age: 58 Gender: F Height: 1.63 m Weight: 101.6 kg Last Vital Signs Temp 36.3 C L 06/18/24 08:20 Pulse 67 06/18/24 08:20 Resp 14 06/18/24 08:20 BP 129/85 06/18/24 08:20 Pulse Ox 100 06/18/24 08:20 O2 Del Method Room Air 06/18/24 08:20 Allergies Allergy/AdvReac Type Severity Reaction Status Date / Time levofloxacin Allergy Severe Anaphylaxis Verified 06/18/24 08:33 citalopram [From Celexa] AdvReac Intermediate Dizziness Verified 06/18/24 08:33 Home Medications Medication Instructions Recorded Confirmed Type magnesium hydroxide 400 mg/5 mL 5 ml PO HS 01/07/20 06/03/24 History oral suspension (Milk of Magnesia) naproxen sodium 220 mg tablet 440 mg PO Q8H PRN Pain 05/27/20 06/18/24 History (Aleve) hydrocodone 5 mg-acetaminophen 325 1 tablet PO BID PRN pain #60 tabs 09/26/23 06/03/24 Rx mg tablet tramadol 50 mg tablet 50 mg PO Q6H PRN pain #30 tabs 11/21/23 06/03/24 Rx hydrochlorothiazide 25 mg tablet 12.5 mg PO DAILY 04/07/24 06/03/24 History clindamycin phosphate 1 % topical 1 applic topical Q12HR 04/10/24 06/03/24 Rx gel hidradenitis #30 grams omeprazole 40 mg capsule,delayed 40 mg PO DAILY #90 caps 04/17/24 06/03/24 Rx release empagliflozin 10 mg tablet 10 mg PO DAILY #90 tabs 04/22/24 06/03/24 Rx (Jardiance) losartan 100 mg tablet See Rx Instructions .Route 04/28/24 06/03/24 Rx .COMPLEX #90 tabs semaglutide 1 mg/dose (4 mg/3 mL) See Rx Instructions .Route 05/19/24 06/03/24 Rx subcutaneous pen injector (Ozempic) .COMPLEX #3 mL acidophilus 100 million 1 cap PO DAILY 06/03/24 06/03/24 History cell-pectin, citrus 10 mg capsule gabapentin 300 mg capsule See Rx Instructions .Route 06/03/24 06/18/24 History .COMPLEX PRN Pain levothyroxine 50 mcg tablet 50 mcg PO DAILY #90 tabs 06/06/24 06/18/24 Rx tizanidine 4 mg tablet See Rx Instructions .Route 06/09/24 06/18/24 Rx .COMPLEX PRN Muscle Spasm #30 tabs alprazolam 0.5 mg tablet (Xanax) 0.5 mg PO BID PRN anxiety #60 tabs 06/16/24 06/18/24 Rx Laboratory Tests 06/18/24 08:06 POC Capillary Glucose 106 H mg/dl (65-105) Patient hx anesthesia problems: none Family hx anesthesia problems: none Results Review: All pre-operative results and documents have been reviewed as part of the pre-operative evaluation. [facility] Past Medical History Medical History Arthritis Colitis Diabetes mellitus History of migraine headaches History of pilonidal cyst Hypertension Weight loss counseling, encounter for Surgical History Surgical History H/O bilateral oophorectomy at age 15, open H/O thyroidectomy History of incisional hernia repair 2019 - open incisional hernia repair with mesh History of loop electrical excision procedure (LEEP) History of partial surgical removal of colon Open sigmoid colectomy for diverticulitis with takedown of colovesical fistula in 2018 Family History Family History Father Hypertension Family history of elevated blood lipids Patient's father is Diabetes mellitus Family history of anemia Family history of cardiovascular disease Family history of colitis Family history of irritable bowel syndrome Mother Hypertension Family history of elevated blood lipids Family history of malignant neoplasm of breast in first degree relative Family history of anemia Sibling Family history of lupus eryt
[2024-06-18] MEDS: LACTATED RINGERS 1,000 ML 30 ML IV CONT ×2 (09:30→13:54)
[2024-06-18] MEDS: metroNIDAZOLE 500 MG/ISO 100ML 500 MG/100 ML BAG 100 MG IVPB (09:58)
[2024-06-18] MEDS: ceFAZolin 2 GM/D5W 50 ML 2 GM/50 ML BAG IVPB ×2 (09:58→19:19)
--- NOTE | 2024-06-18 14:05 | W.PM.PROC2 ---
Procedure Note - Detailed Date of Procedure 06/18/24 Pre-op Diagnosis incarcerated incisional hernia, appendicitis Post-op Diagnosis Same Procedure Performed 1. Open 15cm incarcerated incisional hernia repair with mesh 2. Removal of old mesh foreign body 3. Bilateral myofascial advancement (Transversus abdominus release--8cm on right and 7cm on left) 4. Open appendectomy Surgeon Nelson Benítez DO Grain Farm[employer] Alexander Weaver MD and Jyothi Adamson NP Anesthesia General Indications A 58-year-old woman who presented with a recurrent incisional hernia. She has a history an open colon resection for diverticulitis in 2018 and subsequently developed an incisional hernia. This was repaired in 2019 with an open repair with mesh. Both of these surgeries were performed at an outside facility. About 6 months after the repair in 2019, she began noticing a recurrent hernia. It was not causing symptoms at the time and therefore patient did not seek immediate repair. About 2 months ago she presented to our hospital with acute appendicitis. She was treated with IV antibiotics and surgery was avoided due to her extensive prior surgical history. She then followed up in the office after recovering from this. Her hernia has become larger over the past couple years and now she has a large amount of bowel incarcerated within the hernia. Discussions were made with the patient about treatment options of this as well as the appendicitis and decision was made to proceed with open recurrent incarcerated incisional hernia repair, bilateral component separation, removal of old mesh, and open appendectomy. Findings Hand the patient was found to have a large recurrent incisional hernia measuring 15 cm wide in the mid abdomen. This had bowel chronically incarcerated within it but it did not appear to be causing any obstruction or ischemia. The patient was also found to have a large piece of mesh protruding within the hernia sac. The old mesh was carefully excised. The adhesions were taken down to clearly identify the abdominal wall circumferentially around the hernia defect. Once this was done I was then able to identify the cecum and find the appendix. The appendix appeared to have some chronic dilation but no signs of acute infection. The appendix was removed and sent to the lab for pathology. The fascial edges of the hernia defect were under too much tension to bring together primarily, therefore I performed bilateral transversus abdominis release. I was able to gain about 8 cm of advancement on the right side and about 7 cm advancement on the left. This then allowed the fascial edges to come together with minimal tension. A 30 cm x 30 cm Bard soft mesh was placed within the retrorectus space in a sharifa shape. Nineteen round Geovanny drain was also placed within the retrorectus space. A 15 round Geovanny drain was then placed in the subcutaneous space. Dr. Weaver assisted with the bilateral component separation and the hernia repair. Shana Adamson was the 2nd fire control assistant helped with retraction and assistance with the component separation and hernia repair. Description of Procedure Procedure as well as risks, benefits, and alternatives were discussed with the patient. Written consent was obtained and placed in chart prior to procedure. Patient was brought back to surgical suite. She was placed supine on the operating table. Time-out was done to confirm patient and procedure. She was then intubated by the anesthesia department. Her abdomen was then prepped and draped in sterile fashion using chlorhexidine prep. A wide elliptical incision was made in the vertical midline using a 10 blade scalpel to encompass the entire old scar and the patient's umbilicus. The old scar and umbilicus was excised with electrocautery. I then dissected through the subcutaneous tissue until I encountered the hernia sac. The hernia sac was carefully dissected free all the way down to the level of th
[2024-06-18 14:27] LABS: Glucose Point of Care 172 mg/dl (65-105)
--- NOTE | 2024-06-18 14:51 | SUR.PHASEI ---
Patient brought to PACU by Rachid MALDONADO. Patient SpO2 92% on 15L simple mask with oral airway in place. At 1402 patient SpO2 dropped to 87% with shallow respirations and poor oxygen exchange. At this time Rachid MALDONADO, began manually ventilating patient with BVM. Patient SpO2 so to 94% post-BVM ventilation. Dr. Evans notified at 1412 that patient was having trouble maintaining her SpO2 and needed to be ventilated previously. Per Nathan no new orders at this time. At 1416 patient SpO2 92% while still on 15L simple mask with oral airway still in place. ERICA Loredo came to bedside at this time and place a larger size oral airway and administered 200mg suggamadex and 0.2mg narcan. Patient woke up and oral airway removed at 1420. SpO2 WNL after oral airway removed.
[2024-06-18] MEDS: fentaNYL CITRATE INJ (*CRX) 100 MCG/2 ML VIAL 25 MCG IV PUSH ×4 (15:20→15:40)
--- NOTE | 2024-06-18 16:00 | SUR.PHASEI ---
This RN attempted to call report at this time and was told that the RN taking the patient would have to call back in a little while because she is currently on lunch break and nobody else is able to take report.
--- NOTE | 2024-06-18 16:55 | ADMGEN ---
This patient, Sumaya Razo, was admitted to [facility] Surg Room 320-01. Patient/family oriented to hospital policies and general routines including ID bracelet, bed and alarms, visiting hours, pain management, procedures, bathroom and other care routines, personal items, smoking policy, room service/diet, and visiting hours. Information on how to activate the Rapid Response Team has been discussed. Patient/Family are encouraged to report perceived risks to care and to ask questions if they do not understand what they are told or what they should do.
[2024-06-18 17:02] LABS: Glucose Point of Care 171 mg/dl (65-105)
[2024-06-18] MEDS: oxyCODONE HCL (*CRX) 5 MG TAB IR PO (17:13)
[2024-06-18] MEDS: ACETAMINOPHEN 325 MG TABLET 650 MG PO (17:13)
[2024-06-18] MEDS: GABAPENTIN 300 MG CAPSULE PO (17:13)
[2024-06-18] MEDS: LACTATED RINGERS 1,000 ML 100 ML IV CONT (17:13)
[2024-06-18] MEDS: HYDROmorphone HCL INJ (*CRX) 1 MG/ML SYR IV PUSH ×2 (19:20→23:01)
[2024-06-18 20:05] LABS: Glucose Point of Care 238 mg/dl (65-105)
[2024-06-18] MEDS: ALPRAZolam (*CRX) 0.5 MG TABLET PO (23:08)
[2024-06-19] VITALS (8 sets, daily range): BP systolic 104–120; BP diastolic 64–77; PULSE 75–84; RESP 16–18; TEMP 36.2–36.8; O2SAT 93–97
[2024-06-19] MEDS: ceFAZolin 2 GM/D5W 50 ML 2 GM/50 ML BAG IVPB ×2 (03:19→08:05)
[2024-06-19] MEDS: LACTATED RINGERS 1,000 ML 100 ML IV CONT (03:20)
[2024-06-19] MEDS: LEVOTHYROXINE SODIUM 50 MCG TABLET PO (05:22)
[2024-06-19] MEDS: ACETAMINOPHEN 325 MG TABLET 650 MG PO ×4 (05:22→23:30)
[2024-06-19 07:07] LABS: Hemoglobin 14.2 g/dL (12.0-15.0); Mean Corpuscular Hemoglobin 31.2 pg (26-34); Mean Corpuscular Volume 94.5 fl (80-100); Mean Platelet Volume 9.8 fl (7.4-10.4); Platelet Count Result 268 k/mm3 (150-375); Red Blood Count 4.55 M/mm3 (4.2-5.4); Red Cell Distribution Width 13.2 % (11.5-14.5); White Blood Count 17.5 K/mm3 (4.5-10.0)
[2024-06-19 07:16] LABS: Anion Gap 8 mmol/L (4-12); Blood Urea Nitrogen 27 mg/dL (7-17); Calcium 8.6 mg/dL (8.4-10.2); Carbon Dioxide 25 mmol/L (22-30); Chloride 99 mmol/L (98-107); Estimated CRCL calculation 86 ml/min; Estimated Glomerular Filt Rate > 60; Glucose 151 mg/dL (65-110); Potassium 4.3 mmol/L (3.4-5.0); Sodium 132 mmol/L (137-145)
[2024-06-19 07:36] LABS: Glucose Point of Care 148 mg/dl (65-105)
[2024-06-19] MEDS: hydroCHLOROthiazide 12.5 MG CAPSULE PO (07:58)
[2024-06-19] MEDS: ENOXAPARIN 40 MG/0.4 ML SYRINGE SUB-Q (07:58)
[2024-06-19] MEDS: GABAPENTIN 300 MG CAPSULE PO ×3 (07:58→16:16)
[2024-06-19] MEDS: EMPAGLIFLOZIN 10 MG TABLET PO (07:58)
[2024-06-19] MEDS: PANTOPRAZOLE 40 MG TABLET PO (07:58)
[2024-06-19] MEDS: polyethylene glycoL 3350 17 GM POWD.PACK PO (07:58)
[2024-06-19] MEDS: ALPRAZolam (*CRX) 0.5 MG TABLET PO ×2 (08:02→19:57)
[2024-06-19] MEDS: HYDROmorphone HCL INJ (*CRX) 1 MG/ML SYR IV PUSH ×2 (08:02→16:22)
--- NOTE | 2024-06-19 09:38 | WPDANESPN ---
Anes - Prog Note Post-Op Date/Time: 06/19/24 09:38 Cardiovascular status: normal Respiratory status: normal Airway patency: baseline Mental status: baseline Post-Op hydration status: normal Vital Signs: Last Vital Signs Temp 36.2 C L 06/19/24 05:27 Pulse 79 06/19/24 09:09 Resp 18 06/19/24 05:27 BP 118/64 06/19/24 05:27 Pulse Ox 93 06/19/24 09:09 O2 Del Method Nasal Cannula 06/19/24 09:09 O2 Flow Rate 2 06/19/24 09:09 Pain Score (VAS): 0 I/O: Intake & Output 06/18/24 06/19/24 06/19/24 23:59 07:59 15:59 Intake Total 50 2150 360 Output Total 65 1140 Balance -15 1010 360 Laboratory Tests 06/19/24 06:54 06/19/24 06:54 06/18/24 06/18/24 06/18/24 14:24 16:56 19:56 WBC RBC Hgb Hct MCV MCH MCHC RDW Plt Count MPV Sodium Potassium Chloride Carbon Dioxide Anion Gap BUN Creatinine Estim Creat Clear Calc Estimated GFR Glucose POC Capillary Glucose 172 H 171 H 238 H Calcium 06/19/24 06/19/24 06:54 07:21 WBC 17.5 H RBC 4.55 Hgb 14.2 Hct 43.0 MCV 94.5 MCH 31.2 MCHC 33.0 RDW 13.2 Plt Count 268 MPV 9.8 Sodium 132 L Potassium 4.3 Chloride 99 Carbon Dioxide 25 Anion Gap 8 BUN 27 H Creatinine 0.70 Estim Creat Clear Calc 86 Estimated GFR > 60 Glucose 151 H POC Capillary Glucose 148 H Calcium 8.6 Post-procedural complaints: none Patient Feedback: Patient satisfied with anesthetic care.
[2024-06-19 11:16] LABS: Glucose Point of Care 161 mg/dl (65-105)
--- NOTE | 2024-06-19 11:49 | PM.PNGS ---
Progress Note: A&P Assessment and Plan (1) Recurrent incisional hernia with incarceration: Code(s): K43.0 - Incisional hernia with obstruction, without gangrene Status: Acute Assessment and Plan: Doing well on POD#1. Patient needs to get out of bed and move more. Encouraged IS. Discussed with nursing. Will remove Perez and saline lock IV. Home once tolerating activity and pain controlled. (2) Acute appendicitis: Onset Date: ~03/2024 Qualifiers: Acute appendicitis type: unspecified acute appendicitis type Qualified Code(s): K35.80 - Unspecified acute appendicitis Code(s): K35.80 - Unspecified acute appendicitis Status: Acute (3) Diabetes mellitus: Code(s): E11.9 - Type 2 diabetes mellitus without complications Status: Chronic Subjective Subjective Date/Time Seen: 06/19/24 11:49 Interval history: Patient not out of bed yet since surgery. Pain controlled. No nausea or vomiting. Exam GI: Inspection: non-distended and other (MARIAH drains minimal serosanguinous) GI Palp: Yes Soft to palpation and Yes Tenderness to palpation present (GI) (incisional) Objective Data Vital Signs Vital Signs: Vital Signs - 24 hr 06/18/24 13:54 06/18/24 14:02 06/18/24 14:09 Temperature 36.3 C L Pulse Rate 95 90 88 Respiratory Rate 12 10 L 12 Blood Pressure 109/69 111/77 Pulse Oximetry 92 89 L 94 Oxygen Delivery Simple Face Mask Bag Valve Mask Simple Face Mask Oxygen Flow Rate 15 15 15 06/18/24 14:20 06/18/24 14:35 06/18/24 14:50 Temperature Pulse Rate 94 95 89 Respiratory Rate 12 15 14 Blood Pressure 100/77 116/69 112/69 Pulse Oximetry 93 96 96 Oxygen Delivery Simple Face Mask Simple Face Mask Simple Face Mask Oxygen Flow Rate 15 10 5 06/18/24 15:05 06/18/24 15:20 06/18/24 15:35 Temperature Pulse Rate 89 88 92 Respiratory Rate 14 12 14 Blood Pressure 102/67 107/70 107/69 Pulse Oximetry 95 97 96 Oxygen Delivery Nasal Cannula Nasal Cannula Nasal Cannula Oxygen Flow Rate 2 3 3 06/18/24 15:50 06/18/24 16:05 06/18/24 16:20 Temperature Pulse Rate 98 85 95 Respiratory Rate 17 14 18 Blood Pressure 103/62 110/69 111/75 Pulse Oximetry 95 97 94 Oxygen Delivery Nasal Cannula Nasal Cannula Nasal Cannula Oxygen Flow Rate 3 3 3 06/18/24 16:29 06/18/24 16:45 06/18/24 17:00 Temperature 36.0 C L 35.6 C L Pulse Rate 92 98 94 Respiratory Rate 18 18 18 Blood Pressure 108/67 109/61 110/65 Pulse Oximetry 97 99 98 Oxygen Delivery Nasal Cannula Oxygen Flow Rate 3 06/18/24 17:30 06/18/24 18:30 06/18/24 20:23 Temperature 35.7 C L 36.3 C L 36.3 C L Pulse Rate 93 99 98 Respiratory Rate 18 16 16 Blood Pressure 115/73 133/76 114/75 Pulse Oximetry 98 95 95 Oxygen Delivery Oxygen Flow Rate 06/18/24 20:00 06/18/24 23:37 06/19/24 05:27 Temperature 36.4 C 36.2 C L Pulse Rate 101 H 84 Respiratory Rate 20 18 Blood Pressure 111/66 118/64 Pulse Oximetry 95 97 94 Oxygen Delivery Nasal Cannula Oxygen Flow Rate 2 06/19/24 09:09 06/19/24 08:00 06/19/24 10:23 Temperature 36.7 C Pulse Rate 79 82 Respiratory Rate 16 Blood Pressure 104/69 Pulse Oximetry 93 96 97 Oxygen Delivery Nasal Cannula Nasal Cannula Oxygen Flow Rate 2 1 Intake/Output Intake/Output: Intake & Output 06/16/24 06/17/24 06/18/24 06/19/24 23:59 23:59 23:59 23:59 Intake Total 400 2810 Output Total 225 2140 Balance 175 670 Meds/Results Medications: Active Medications Generic Name Dose Route Start Last Admin Trade Name Naveenq PRN Reason Stop Dose Admin Acetaminophen 650 mg 06/18/24 18:00 06/19/24 05:22 Acetaminophen 325 Mg Tablet PO 650 mg Q6HR JUVENCIO Administration Alprazolam 0.5 mg 06/18/24 16:38 06/19/24 08:02 Alprazolam (*Crx) 0.5 Mg Tablet PO 0.5 mg BID PRN Administration anxiety Empagliflozin 10 mg 06/19/24 09:00 06/19/24 07:58 Empagliflozin 10 Mg Tablet PO 10 mg DAILY JUVENCIO Adminis
[2024-06-19] MEDS: MAGNESIUM HYDROXIDE SUSP 30 ML UDC PO (12:41)
[2024-06-19 16:37] LABS: Glucose Point of Care 148 mg/dl (65-105)
[2024-06-19 17:58] LABS: Hematocrit 40.5 % (37.0-47.0); Hemoglobin 13.8 g/dL (12.0-15.0)
[2024-06-19 20:47] LABS: Glucose Point of Care 157 mg/dl (65-105)
[2024-06-20] MEDS: HYDROmorphone HCL INJ (*CRX) 1 MG/ML SYR IV PUSH (00:46)
[2024-06-20 04:44] VITALS: BP 112/73; PULSE 87; RESP 22; TEMP 36.1; O2SAT 93
[2024-06-20] MEDS: ACETAMINOPHEN 325 MG TABLET 650 MG PO ×3 (05:59→18:20)
[2024-06-20] MEDS: LEVOTHYROXINE SODIUM 50 MCG TABLET PO (05:59)
[2024-06-20 06:28] LABS: Hematocrit 37.4 % (37.0-47.0); Hemoglobin 12.5 g/dL (12.0-15.0); Mean Corpuscular HGB Conc 33.4 g/dl (32-36); Mean Corpuscular Hemoglobin 32.1 pg (26-34); Mean Corpuscular Volume 96.1 fl (80-100); Mean Platelet Volume 10.1 fl (7.4-10.4); Platelet Count Result 268 k/mm3 (150-375); Red Blood Count 3.89 M/mm3 (4.2-5.4); Red Cell Distribution Width 13.4 % (11.5-14.5); White Blood Count 10.7 K/mm3 (4.5-10.0)
[2024-06-20 06:37] LABS: Anion Gap 7 mmol/L (4-12); Blood Urea Nitrogen 26 mg/dL (7-17); Calcium 8.4 mg/dL (8.4-10.2); Carbon Dioxide 30 mmol/L (22-30); Chloride 96 mmol/L (98-107); Estimated CRCL calculation 76 ml/min; Estimated Glomerular Filt Rate > 60; Glucose 126 mg/dL (65-110); Potassium 4.2 mmol/L (3.4-5.0); Sodium 133 mmol/L (137-145)
[2024-06-20 07:30] LABS: Glucose Point of Care 130 mg/dl (65-105)
[2024-06-20 08:02] VITALS: O2SAT 96
[2024-06-20] MEDS: PANTOPRAZOLE 40 MG TABLET PO (08:48)
[2024-06-20] MEDS: GABAPENTIN 300 MG CAPSULE PO ×3 (08:48→18:20)
[2024-06-20] MEDS: hydroCHLOROthiazide 12.5 MG CAPSULE PO (08:48)
[2024-06-20] MEDS: ALPRAZolam (*CRX) 0.5 MG TABLET PO (08:48)
[2024-06-20] MEDS: oxyCODONE HCL (*CRX) 5 MG TAB IR PO (08:50)
[2024-06-20] MEDS: ENOXAPARIN 40 MG/0.4 ML SYRINGE SUB-Q (08:57)
[2024-06-20 11:39] LABS: Glucose Point of Care 130 mg/dl (65-105)
--- NOTE | 2024-06-20 11:42 | PM.PNGS ---
Progress Note: A&P Assessment and Plan (1) Recurrent incisional hernia with incarceration: Code(s): K43.0 - Incisional hernia with obstruction, without gangrene Status: Acute Assessment and Plan: Doing well on POD#1. Slowly advance activity. Perez out tomorrow if continuing to improve. Home when pain well controlled and tolerating activity. (2) Acute appendicitis: Onset Date: ~03/2024 Qualifiers: Acute appendicitis type: unspecified acute appendicitis type Qualified Code(s): K35.80 - Unspecified acute appendicitis Code(s): K35.80 - Unspecified acute appendicitis Status: Acute (3) Diabetes mellitus: Code(s): E11.9 - Type 2 diabetes mellitus without complications Status: Chronic Subjective Subjective Date/Time Seen: 06/20/24 11:42 Interval history: Patient had increased drainage from the subq drain yesterday. Drainage tapering down today already. Pain controlled. Exam GI: Inspection: non-distended and other (MARIAH drains minimal serosanguinous) GI Palp: Yes Soft to palpation and Yes Tenderness to palpation present (GI) (incisional) Objective Data Vital Signs Vital Signs: Vital Signs - 24 hr 06/19/24 14:23 06/19/24 16:37 06/19/24 18:15 Temperature 36.8 C 36.4 C Pulse Rate 78 75 Respiratory Rate 18 16 Blood Pressure 105/69 107/72 117/77 Pulse Oximetry 96 95 Oxygen Delivery Fraction of Inspired Oxygen 06/19/24 22:01 06/20/24 04:44 06/20/24 08:02 Temperature 36.2 C L 36.1 C L Pulse Rate 82 87 Respiratory Rate 18 22 H Blood Pressure 120/71 112/73 Pulse Oximetry 96 93 96 Oxygen Delivery Room Air Fraction of Inspired Oxygen 21 06/20/24 08:50 Temperature Pulse Rate Respiratory Rate Blood Pressure Pulse Oximetry Oxygen Delivery Room Air Fraction of Inspired Oxygen Intake/Output Intake/Output: Intake & Output 06/17/24 06/18/24 06/19/24 06/20/24 23:59 23:59 23:59 23:59 Intake Total 400 4770 550 Output Total 225 4625 835 Balance 175 1055 -285 Meds/Results Medications: Active Medications Generic Name Dose Route Start Last Admin Trade Name Freq PRN Reason Stop Dose Admin Acetaminophen 650 mg 06/18/24 18:00 06/20/24 05:59 Acetaminophen 325 Mg Tablet PO 650 mg Q6HR JUEVNCIO Administration Alprazolam 0.5 mg 06/18/24 16:38 06/20/24 08:48 Alprazolam (*Crx) 0.5 Mg Tablet PO 0.5 mg BID PRN Administration anxiety Empagliflozin 10 mg 06/19/24 09:00 06/20/24 08:57 Empagliflozin 10 Mg Tablet PO Not Given DAILY JUVENCIO Enoxaparin Sodium 40 mg 06/19/24 09:00 06/20/24 08:57 Enoxaparin 40 Mg/0.4 Ml Syringe SUB-Q 40 mg DAILY JUVENCIO Administration Gabapentin 300 mg 06/18/24 17:00 06/20/24 08:48 Gabapentin 300 Mg Capsule PO 300 mg TID JUVENCIO Administration Hydrochlorothiazide 12.5 mg 06/19/24 09:00 06/20/24 08:48 Hydrochlorothiazide 12.5 Mg Capsule PO 12.5 mg DAILY JUVENCIO Administration Hydromorphone HCl 1 mg 06/18/24 16:38 06/20/24 00:46 Hydromorphone Hcl Inj (*Crx) 1 Mg/Ml Syr IV PUSH 1 mg Q2H PRN Administration Breakthrough Pain Rated 7-10 or NPO Hydromorphone HCl 0.5 mg 06/18/24 16:38 Hydromorphone Hcl Inj (*Crx) 1 Mg/Ml Syr IV PUSH Q2H PRN Breakthrough Pain Rated 4-6 or NPO Ibuprofen 800 mg in 200 mls @ 400 mls/hr 06/18/24 16:38 Caldolor 800 Mg/200 Ml IVPB Q6H PRN Breakthrough Pain Rated 1-3 or NPO Ibuprofen 600 mg 06/18/24 16:38 Ibuprofen 600 Mg Tablet PO Q6H PRN Pain Rated 1-3 Levothyroxine Sodium 50 mcg 06/19/24 06:30 06/20/24 05:59 Levothyroxine Sodium 50 Mcg Tablet PO 50 mcg DAILY@0630 JUVENCIO Administration Magnesium Hydroxide 30 ml 06/19/24 11:50 06/20/24 08:58 Magnesium Hydroxide Susp 30 Ml Udc PO Not Given QAM JUVENCIO Naloxone HCl 0.1 mg 06/18/24 16:38 Naloxone Hcl 0.4 Mg/Ml Vial IV PUSH Q2M PRN Opiate Reversal Ondansetron HCl 4 mg 07
[2024-06-20 14:01] VITALS: BP 106/67; PULSE 92; RESP 20; TEMP 35.8; O2SAT 93
[2024-06-20 16:25] LABS: Glucose Point of Care 125 mg/dl (65-105)
[2024-06-20 20:00] LABS: Glucose Point of Care 162 mg/dl (65-105)
[2024-06-20 20:15] VITALS: BP 111/70; PULSE 99; RESP 14; TEMP 36.6; O2SAT 93
[2024-06-21] MEDS: ACETAMINOPHEN 325 MG TABLET 650 MG PO ×4 (05:50→23:49)
[2024-06-21] MEDS: LEVOTHYROXINE SODIUM 50 MCG TABLET PO (05:50)
[2024-06-21 05:58] VITALS: BP 104/64; PULSE 83; RESP 16; TEMP 36.4; O2SAT 93
[2024-06-21 06:30] LABS: Hematocrit 36.5 % (37.0-47.0); Mean Corpuscular HGB Conc 32.9 g/dl (32-36); Mean Corpuscular Hemoglobin 31.7 pg (26-34); Mean Corpuscular Volume 96.6 fl (80-100); Platelet Count Result 264 k/mm3 (150-375); Red Blood Count 3.78 M/mm3 (4.2-5.4); Red Cell Distribution Width 13.1 % (11.5-14.5); White Blood Count 8.3 K/mm3 (4.5-10.0)
[2024-06-21 06:45] LABS: Anion Gap 6 mmol/L (4-12); Blood Urea Nitrogen 18 mg/dL (7-17); Calcium 8.2 mg/dL (8.4-10.2); Carbon Dioxide 30 mmol/L (22-30); Chloride 98 mmol/L (98-107); Estimated CRCL calculation 86 ml/min; Estimated Glomerular Filt Rate > 60; Glucose 116 mg/dL (65-110); Potassium 3.6 mmol/L (3.4-5.0); Sodium 134 mmol/L (137-145)
[2024-06-21 07:51] LABS: Glucose Point of Care 122 mg/dl (65-105)
[2024-06-21] MEDS: ALPRAZolam (*CRX) 0.5 MG TABLET PO (08:33)
[2024-06-21] MEDS: hydroCHLOROthiazide 12.5 MG CAPSULE PO (08:33)
[2024-06-21] MEDS: EMPAGLIFLOZIN 10 MG TABLET PO (08:33)
[2024-06-21] MEDS: GABAPENTIN 300 MG CAPSULE PO ×3 (08:33→16:06)
[2024-06-21] MEDS: PANTOPRAZOLE 40 MG TABLET PO (08:33)
[2024-06-21] MEDS: ENOXAPARIN 40 MG/0.4 ML SYRINGE SUB-Q (08:34)
[2024-06-21 10:05] VITALS: BP 115/76; PULSE 92; RESP 20; TEMP 36.6; O2SAT 94
[2024-06-21 11:45] LABS: Glucose Point of Care 113 mg/dl (65-105)
--- NOTE | 2024-06-21 11:50 | WPDPN ---
Progress Note: A&P Assessment and Plan (1) Recurrent incisional hernia with incarceration: Code(s): K43.0 - Incisional hernia with obstruction, without gangrene Status: Acute Assessment and Plan: Patient is doing fairly well today. She is on solid food. We will go ahead removed the Perez catheter liver get up and go to the bathroom today. Will monitor the output from her drains. Hemoglobin this morning is still 12 with a minor drop from her admission hemoglobin of around 13 to 14. Does not appear to be actively bleeding from the subcutaneous drain on the right side now. Continue supportive management today. It doing better tomorrow and tolerating only oral pain medications then there is a possibility she may be discharged tomorrow. Subjective Date/time seen: 06/21/24 11:50 Interval history: Patient seems to be doing better. No more significant bleeding from the right lateral abdominal wall subcutaneous drain. She still has a Perez catheter in place. No fever. Labs are stable. Pain is fairly well controlled with minimal months of narcotics and mostly Tylenol. Tolerating a regular diabetic diet. Exam GI: Other: Abdomen is soft and obese. Left-sided retrorectus drained showed sanguinous output. Right-sided subcutaneous MARIAH drain much less bloody output today. incision is healing well. Stable right-sided hematoma in the subcu tissues without skin ischemia. Objective Data Vital Signs Vital Signs: Vital Signs - 24 hr 06/20/24 14:01 06/20/24 20:15 06/21/24 05:58 Temperature 35.8 C L 36.6 C 36.4 C L Pulse Rate 92 99 83 Respiratory Rate 20 14 16 Blood Pressure 106/67 111/70 104/64 Pulse Oximetry 93 93 93 06/21/24 10:05 Temperature 36.6 C Pulse Rate 92 Respiratory Rate 20 Blood Pressure 115/76 Pulse Oximetry 94 Intake/Output Intake/Output: Intake & Output 06/18/24 06/19/24 06/20/24 06/21/24 23:59 23:59 23:59 23:59 Intake Total 400 4770 1030 990 Output Total 225 9615 2921 1300 Balance 175 6275 -5251 -310 Meds/Results Medications: Active Medications Generic Name Dose Route Start Last Admin Trade Name Freq PRN Reason Stop Dose Admin Acetaminophen 650 mg 06/18/24 18:00 06/21/24 05:50 Acetaminophen 325 Mg Tablet PO 650 mg Q6HR JUVENCIO Administration Alprazolam 0.5 mg 06/18/24 16:38 06/21/24 08:33 Alprazolam (*Crx) 0.5 Mg Tablet PO 0.5 mg BID PRN Administration anxiety Empagliflozin 10 mg 06/19/24 09:00 06/21/24 08:33 Empagliflozin 10 Mg Tablet PO 10 mg DAILY JUVENCIO Administration Enoxaparin Sodium 40 mg 06/19/24 09:00 06/21/24 08:34 Enoxaparin 40 Mg/0.4 Ml Syringe SUB-Q 40 mg DAILY JUVENCIO Administration Gabapentin 300 mg 06/18/24 17:00 06/21/24 08:33 Gabapentin 300 Mg Capsule PO 300 mg TID JUVENCIO Administration Hydrochlorothiazide 12.5 mg 06/19/24 09:00 06/21/24 08:33 Hydrochlorothiazide 12.5 Mg Capsule PO 12.5 mg DAILY JUVENCIO Administration Hydromorphone HCl 1 mg 06/18/24 16:38 06/20/24 00:46 Hydromorphone Hcl Inj (*Crx) 1 Mg/Ml Syr IV PUSH 1 mg Q2H PRN Administration Breakthrough Pain Rated 7-10 or NPO Hydromorphone HCl 0.5 mg 06/18/24 16:38 Hydromorphone Hcl Inj (*Crx) 1 Mg/Ml Syr IV PUSH Q2H PRN Breakthrough Pain Rated 4-6 or NPO Ibuprofen 800 mg in 200 mls @ 400 mls/hr 06/18/24 16:38 Caldolor 800 Mg/200 Ml IVPB Q6H PRN Breakthrough Pain Rated 1-3 or NPO Ibuprofen 600 mg 06/18/24 16:38 Ibuprofen 600 Mg Tablet PO Q6H PRN Pain Rated 1-3 Levothyroxine Sodium 50 mcg 06/19/24 06:30 06/21/24 05:50 Levothyroxine Sodium 50 Mcg Tablet PO 50 mcg DAILY@0630 JUVENCIO Administration Magnesium Hydroxide 30 ml 06/19/24 11:50 06/21/24 08:35 Magnesium Hydroxide Susp 30 Ml Udc PO Not Given QAM JUVENCIO Naloxone HCl 0.1 mg 06/18/24 16:38 Naloxone Hcl 0.4 Mg/Ml Vial IV PUSH Q2M PRN Opiate Reversal Ondansetron HCl 4
[2024-06-21 13:50] VITALS: BP 118/66; PULSE 94; RESP 20; TEMP 36.2; O2SAT 95
[2024-06-21 16:41] LABS: Glucose Point of Care 141 mg/dl (65-105)
[2024-06-21 20:30] VITALS: PULSE 94; RESP 20; O2SAT 95
[2024-06-21 20:35] LABS: Glucose Point of Care 117 mg/dl (65-105)
[2024-06-21 22:00] VITALS: BP 113/76; PULSE 77; RESP 13; TEMP 36.5; O2SAT 95
[2024-06-21] MEDS: oxyCODONE HCL (*CRX) 2.5 MG TAB IR PO (23:49)
[2024-06-22] MEDS: ACETAMINOPHEN 325 MG TABLET 650 MG PO ×4 (05:38→23:33)
[2024-06-22] MEDS: LEVOTHYROXINE SODIUM 50 MCG TABLET PO (05:38)
[2024-06-22 06:21] LABS: Hematocrit 34.1 % (37.0-47.0); Hemoglobin 11.3 g/dL (12.0-15.0); Mean Corpuscular HGB Conc 33.1 g/dl (32-36); Mean Corpuscular Hemoglobin 31.7 pg (26-34); Mean Corpuscular Volume 95.5 fl (80-100); Mean Platelet Volume 9.8 fl (7.4-10.4); Platelet Count Result 295 k/mm3 (150-375); Red Blood Count 3.57 M/mm3 (4.2-5.4); White Blood Count 8.2 K/mm3 (4.5-10.0)
[2024-06-22 06:34] LABS: Anion Gap 4 mmol/L (4-12); Blood Urea Nitrogen 18 mg/dL (7-17); Calcium 8.3 mg/dL (8.4-10.2); Carbon Dioxide 32 mmol/L (22-30); Chloride 97 mmol/L (98-107); Estimated CRCL calculation 100 ml/min; Estimated Glomerular Filt Rate > 60; Glucose 113 mg/dL (65-110); Potassium 3.5 mmol/L (3.4-5.0); Sodium 133 mmol/L (137-145)
[2024-06-22 07:24] LABS: Glucose Point of Care 109 mg/dl (65-105)
[2024-06-22] MEDS: EMPAGLIFLOZIN 10 MG TABLET PO (08:12)
[2024-06-22] MEDS: hydroCHLOROthiazide 12.5 MG CAPSULE PO (08:12)
[2024-06-22] MEDS: MAGNESIUM HYDROXIDE SUSP 30 ML UDC PO (08:13)
[2024-06-22] MEDS: ENOXAPARIN 40 MG/0.4 ML SYRINGE SUB-Q (08:13)
[2024-06-22] MEDS: PANTOPRAZOLE 40 MG TABLET PO (08:13)
[2024-06-22] MEDS: GABAPENTIN 300 MG CAPSULE PO ×3 (08:13→17:15)
[2024-06-22 11:54] LABS: Glucose Point of Care 112 mg/dl (65-105)
--- NOTE | 2024-06-22 12:00 | WPDPN ---
Progress Note: A&P Assessment and Plan (1) Recurrent incisional hernia with incarceration: Code(s): K43.0 - Incisional hernia with obstruction, without gangrene Status: Acute Assessment and Plan: He has been doing well. Pain is well controlled with only Tylenol at this point. Right-sided subcutaneous drain continues to be somewhat bloody but hemoglobin is holding steady between 11 and 12. Leave drain in place. Left-sided retrorectus drain is more serous in nature but will leave that in place as well as patient is not going to be discharged home today. Encouraged patient to try more solid foods today. Ambulate and continue supportive management. Subjective Date/time seen: 06/22/24 12:00 Interval history: Patient without any new complaints. States her pain is controlled with just oral Tylenol. Having bowel movements. Getting up out of bed walking to the bathroom. Hemoglobin is down to 11.3 from 12 yesterday. Continues to have serosanguineous drainage from the subcutaneous drain on the right side. No tachycardia or hypotension. Solid food diet was ordered for her yesterday. She did not take very much solid food and states she is only the some mashed potatoes for solid food. Will try to eat more solid food today. Exam GI: Other: Abdomen is soft and obese. Midline incision is intact with no redness or drainage. Left-sided retrorectus drain more serous with just blood tinged output. Right-sided subcutaneous drain more bloody but less so than 2 days ago. Objective Data Vital Signs Vital Signs: Vital Signs - 24 hr 06/21/24 13:50 06/21/24 20:30 06/21/24 22:00 Temperature 36.2 C L 36.5 C Pulse Rate 94 94 77 Respiratory Rate 20 20 13 Blood Pressure 118/66 113/76 Pulse Oximetry 95 95 95 Oxygen Delivery Room Air Fraction of Inspired Oxygen 21 06/22/24 08:00 Temperature Pulse Rate Respiratory Rate Blood Pressure Pulse Oximetry Oxygen Delivery Room Air Fraction of Inspired Oxygen Intake/Output Intake/Output: Intake & Output 06/19/24 06/20/24 06/21/24 06/22/24 23:59 23:59 23:59 23:59 Intake Total 7056 1033 1470 690 Output Total 5368 7373 0666 Balance 5200 -8452 -422 690 Meds/Results Medications: Active Medications Generic Name Dose Route Start Last Admin Trade Name Adolfo PRN Reason Stop Dose Admin Acetaminophen 650 mg 06/18/24 18:00 06/22/24 05:38 Acetaminophen 325 Mg Tablet PO 650 mg Q6HR JUVENCIO Administration Alprazolam 0.5 mg 06/18/24 16:38 06/21/24 08:33 Alprazolam (*Crx) 0.5 Mg Tablet PO 0.5 mg BID PRN Administration anxiety Empagliflozin 10 mg 06/19/24 09:00 06/22/24 08:12 Empagliflozin 10 Mg Tablet PO 10 mg DAILY JUVENCIO Administration Enoxaparin Sodium 40 mg 06/19/24 09:00 06/22/24 08:13 Enoxaparin 40 Mg/0.4 Ml Syringe SUB-Q 40 mg DAILY JUVENCIO Administration Gabapentin 300 mg 06/18/24 17:00 06/22/24 08:13 Gabapentin 300 Mg Capsule PO 300 mg TID JUVENCIO Administration Hydrochlorothiazide 12.5 mg 06/19/24 09:00 06/22/24 08:12 Hydrochlorothiazide 12.5 Mg Capsule PO 12.5 mg DAILY JUVENCIO Administration Hydromorphone HCl 1 mg 06/18/24 16:38 06/20/24 00:46 Hydromorphone Hcl Inj (*Crx) 1 Mg/Ml Syr IV PUSH 1 mg Q2H PRN Administration Breakthrough Pain Rated 7-10 or NPO Hydromorphone HCl 0.5 mg 06/18/24 16:38 Hydromorphone Hcl Inj (*Crx) 1 Mg/Ml Syr IV PUSH Q2H PRN Breakthrough Pain Rated 4-6 or NPO Ibuprofen 800 mg in 200 mls @ 400 mls/hr 06/18/24 16:38 Caldolor 800 Mg/200 Ml IVPB Q6H PRN Breakthrough Pain Rated 1-3 or NPO Ibuprofen 600 mg 06/18/24 16:38 Ibuprofen 600 Mg Tablet PO Q6H PRN Pain Rated 1-3 Levothyroxine Sodium 50 mcg 06/19/24 06:30 06/22/24 05:38 Levothyroxine Sodium 50 Mcg Tablet PO 50 mcg DAILY@0630 JUVENCIO Administration Magnesium Hydroxide 30 ml 06/19/24 11:50 06/22/24 08:13 Magnesium Hydroxide Susp 30
[2024-06-22 14:00] VITALS: BP 129/69; PULSE 90; RESP 18; TEMP 36.3; O2SAT 95
[2024-06-22 16:25] LABS: Glucose Point of Care 104 mg/dl (65-105)
[2024-06-22 20:00] VITALS: PULSE 90; RESP 18; O2SAT 95
[2024-06-22 21:15] VITALS: BP 118/80; PULSE 79; RESP 18; TEMP 37.6; O2SAT 96
[2024-06-22 21:56] LABS: Glucose Point of Care 119 mg/dl (65-105)
[2024-06-23] MEDS: MELATONIN 3 MG TABLET PO (02:25)
[2024-06-23 04:45] VITALS: BP 132/83; PULSE 79; RESP 18; TEMP 36.6; O2SAT 97
[2024-06-23 05:44] LABS: Hematocrit 33.9 % (37.0-47.0); Hemoglobin 11.3 g/dL (12.0-15.0); Mean Corpuscular HGB Conc 33.3 g/dl (32-36); Mean Corpuscular Hemoglobin 31.7 pg (26-34); Mean Corpuscular Volume 95.2 fl (80-100); Mean Platelet Volume 9.4 fl (7.4-10.4); Platelet Count Result 300 k/mm3 (150-375); Red Blood Count 3.56 M/mm3 (4.2-5.4); Red Cell Distribution Width 12.9 % (11.5-14.5); White Blood Count 8.3 K/mm3 (4.5-10.0)
[2024-06-23 05:58] LABS: Anion Gap 6 mmol/L (4-12); Blood Urea Nitrogen 14 mg/dL (7-17); Calcium 8.3 mg/dL (8.4-10.2); Carbon Dioxide 29 mmol/L (22-30); Chloride 98 mmol/L (98-107); Estimated CRCL calculation 100 ml/min; Estimated Glomerular Filt Rate > 60; Glucose 115 mg/dL (65-110); Potassium 3.4 mmol/L (3.4-5.0); Sodium 133 mmol/L (137-145)
[2024-06-23] MEDS: ACETAMINOPHEN 325 MG TABLET 650 MG PO ×2 (05:59→14:22)
[2024-06-23] MEDS: LEVOTHYROXINE SODIUM 50 MCG TABLET PO (05:59)
[2024-06-23 07:41] LABS: Glucose Point of Care 111 mg/dl (65-105)
[2024-06-23] MEDS: IBUPROFEN IV 800 MG/200 ML 800 MG/200 ML BAG 400 MG IVPB (09:00)
[2024-06-23] MEDS: GABAPENTIN 300 MG CAPSULE PO ×2 (09:01→14:22)
[2024-06-23] MEDS: EMPAGLIFLOZIN 10 MG TABLET PO (09:02)
[2024-06-23] MEDS: ENOXAPARIN 40 MG/0.4 ML SYRINGE SUB-Q (09:02)
[2024-06-23] MEDS: hydroCHLOROthiazide 12.5 MG CAPSULE PO (09:02)
[2024-06-23] MEDS: MAGNESIUM HYDROXIDE SUSP 30 ML UDC PO (09:02)
[2024-06-23] MEDS: PANTOPRAZOLE 40 MG TABLET PO (09:02)
[2024-06-23] MEDS: ALPRAZolam (*CRX) 0.5 MG TABLET PO (09:03)
[2024-06-23 11:29] LABS: Glucose Point of Care 119 mg/dl (65-105)
--- NOTE | 2024-06-23 13:57 | PM.DS ---
DS: Admitting Diagnosis Discharge Date 06/23/2024 Admitting Diagnosis Recurrent incarcerated incisional hernia DS: Discharge Diagnosis Discharge Diagnosis (1) Recurrent incisional hernia with incarceration: Code(s): K43.0 - Incisional hernia with obstruction, without gangrene Status: Acute DS: Summary Hospital Course Reason for hospitalization: This is a 58-year-old woman who presented for repair of a recurrent incarcerated incisional hernia. She has a large hernia containing loops of bowel and has had a prior open repair with mesh. She recently had an episode of acute appendicitis which was treated with antibiotics and she appeared to recover. Discussions were made as an outpatient and decision was made to proceed with surgical repair and appendectomy. Hospital Course: On 06/18/2024, she underwent an open 15 cm incarcerated incisional hernia repair with mesh, removal of old mesh foreign body, bilateral myofascial advancement, and open appendectomy by Dr. Benítez. Her surgery was straightforward and she was admitted postoperatively for monitoring and pain management. Activity was being increased and patient was encouraged to get up to chair and start ambulating. Postop day 1, the patient had increased bloody drainage from her subcutaneous MARIAH drain. She was kept on bed rest for the night and monitored closely. MARIAH drainage tapered down. Labs were monitored. Hemoglobin dropped from 14.2 on the morning of postop day 1 to 11.3 postop day 4 and remained stable. Perez catheter was removed and she was voiding without difficulty. Activity was slowly increased. Her diet was also advanced. She initially had a poor appetite, but this improved and she was tolerating a solid diet prior to discharge. She also had mild hypokalemia, which was replaced with KCL. By postop day 6, the patient was stable for discharge. Her MARIAH drain on the left was removed prior to discharge. Her MARIAH drain on the right in the subcutaneous space was left in place on discharge with follow-up scheduled with Dr. Benítez. Status at Discharge Functional status at discharge: independent ambulation Overall status at discharge: patient is progressing back to baseline Time Spent with Patient Time attestation: Total time spent providing and/or coordinating discharge services: Time spent: Less than 30 minutes Exam Const: General: no acute distress Orientation/consciousness: patient oriented x3 Resp: Effort & Inspection: normal respiratory effort Auscultation: clear to auscultation bilaterally Cardio: Rate: regular rate Rhythm: regular rhythm GI: Inspection: non-distended, incision (dry and intact with no erythema or drainage) and obesity GI Palp: Yes Soft to palpation, Yes Tenderness to palpation present (GI) (incisional) and No Guarding due to palpation present (GI) Other: Left-sided retrorectus drain with scant serosanguineous drainage. Right-sided subcutaneous drain with minimal bloody output, decreasing over the past few days. DS: Data Data Completed and Pending Completed studies during hospitalization: Pending at discharge 06/18/24 11:13 Surgical [PTH] Routine Surgical [PTH] Routine Surgical [PTH] Routine Labs on day of discharge: Labs from last 24 hours 06/23/24 06/23/24 06/23/24 11:24 07:21 05:35 WBC 8.3 RBC 3.56 L Hgb 11.3 L Hct 33.9 L MCV 95.2 MCH 31.7 MCHC 33.3 RDW 12.9 Plt Count 300 MPV 9.4 Sodium 133 L Potassium 3.4 Chloride 98 Carbon Dioxide 29 Anion Gap 6 BUN 14 Creatinine 0.60 L Estim Creat Clear Calc 100 Estimated GFR > 60 Glucose 115 H POC Capillary Glucose 119 H 111 H Calcium 8.3 L 06/22/24 06/22/24 21:18 16:21 WBC RBC Hgb Hct MCV MCH MCHC RDW Plt Count MPV Sodium Potassium Chloride Carbon Dioxide Anion Gap BUN Creatinine Estim Creat Clear Calc Estimated GFR Glucose POC C
[2024-06-23 14:00] VITALS: BP 124/85; PULSE 90; RESP 18; TEMP 36.8; O2SAT 97
--- NOTE | 2024-06-23 15:18 | PC.NURSE ---
This RN removed Left MARIAH drain and covered with 4x4 and tegaderm, pt sent with supplies for remaining MARIAH drain. IV discontinued. Discharge instructions discussed in detail with pt. All questions answered.
== END 2024-06-23 15:20 | disposition home or self-care (01) | DRG 398 ==
LOC: ANHSURGERY 16:41 → ANH3MEDSUR 16:45
PROVIDERS: Admitting Provider Surgery; PCP Physician Assistant Medical; Visit Provider Nurse Practitioner Family
PROC: 0WQF0ZZ Repair Abdominal Wall, Open Approach (ICD-10-PCS; principal; 2024-06-18 09:30)
PROC: 0DTJ0ZZ Resection of Appendix, Open Approach (ICD-10-PCS; CPT 44950; 2024-06-18 09:30)
DX: K43.0 Incisional hernia with obstruction, without gangrene (principal); K35.80 Unspecified acute appendicitis; E87.6 Hypokalemia; E11.9 Type 2 diabetes mellitus without complications; I10 Essential (primary) hypertension; Z79.84 Long term (current) use of oral hypoglycemic drugs; Z79.85 Long-term (current) use of injectable non-insulin antidiabetic drugs; Z90.89 Acquired absence of other organs; Z87.891 Personal history of nicotine dependence; Z90.49 Acquired absence of other specified parts of digestive tract
CPT/HCPCS: 36415; 80048; 82948; 85014; 85018; 85027; 88300; 88302; 88304; A9270; C1781; J0690; J1100; J1170; J1200; J1650; J1741; J1836; J1885; J2250; J2310; J2405; J2704; J3010; J7120

== ENCOUNTER 2024-11-02 13:20 | Outpatient (CLI) | payer BC, SELFPAY ==
--- NOTE | ~2024-11-02 | MR_ITS ---
MRI of the lumbar spine Clinical History: Spondylosis Technique: Axial T2-weighted and gradient images, and sagittal T1-weighted, T2-weighted, and STIR rohini ges were acquired. Findings: There is 5 mm anterolisthesis of L5 over S1. No fracture or other subluxation seen. No susp icious bone marrow signal abnormality seen. At L1-L2, there is advanced degenerative disc narrowing. There is mild diffuse disc bulge with mild t o moderate facet arthropathy. No karol central canal stenosis. There is mild bilateral neural foramin al narrowing. At L2-L3, there is no disc bulge or herniation. There is mild to moderate facet arthropathy. No centr al canal stenosis or neural foraminal narrowing. At L3-L4, there is diffuse disc bulge and advanced facet arthropathy, resulting in moderate to severe spinal canal stenosis/thecal sac compression. There is moderate to severe bilateral neural foraminal narrowing, left worse than right. At L4-L5, there is diffuse disc bulge with advanced facet arthropathy. There is moderate to severe sp inal canal stenosis/thecal sac compression. There is moderate to advanced right neural foraminal narr owing, and moderate left neural foraminal narrowing. At L5-S1, there is diffuse disc bulge/uncovering with severe facet arthropathy, result in severe spin al canal stenosis/thecal sac compression. There is severe bilateral neural foraminal compromise, left worse than right. Paravertebral soft tissues are unremarkable. Impression: Severe multilevel degenerative spondylosis, as detailed above, worst at L5-S1. 5 mm anterolisthesis of L5 over S1. Reviewed, dictated and finalized at [facility]. 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 5 mm anterolisthesis of L5 over S1.
== END 2024-11-02 13:21 | disposition home or self-care (01) ==
PROVIDERS: PCP Physician Assistant Medical; Visit Provider Physician Assistant Medical
DX: M47.816 Spondylosis without myelopathy or radiculopathy, lumbar region (principal); M51.379 Other intervertebral disc degeneration, lumbosacral region without mention of lumbar back pain or lower extremity pain
CPT/HCPCS: 72148

== ENCOUNTER 2024-12-18 15:07 | Outpatient (CLI) | payer BC, SELFPAY ==
--- NOTE | ~2024-12-18 | XR_ITS ---
CHEST RADIOGRAPH, PA AND LATERAL CLINICAL HISTORY: PRE-OP TESTING . COMPARISON: None available TECHNIQUE: PA and lateral views of the chest. FINDINGS The cardiomediastinal silhouette is unremarkable. The lungs are clear. Visualized osseous structures and soft tissues are unremarkable. IMPRESSION: No focal infiltrate or effusion. Reviewed, dictated and finalized at location A. 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
--- NOTE | 2024-12-18 15:40 | ECG_ITS ---
Test Date: 2024-12-18 15:45:49 Measurements Intervals [place] Rate: 68 P: 33 MS: 158 QRS: -28 QRSD: 132 T: 78 QT: 409 QTc: 436 Interpretive Statements SINUS RHYTHM BORDERLINE LEFT AXIS DEVIATION [QRS AXIS < -20] RIGHT BUNDLE BRANCH BLOCK [120+ ms QRS DURATION, UPRIGHT V1, 40+ ms S IN I/aVL/V4/V5/V6] LEFT VENTRICULAR HYPERTROPHY AND ST-T CHANGE [VOLTAGE CRITERIA PLUS ST/T ABNORMALITY] Compared to ECG 06/03/2024 13:44:26 ST (T wave) deviation now present Electronically Signed On 12-19-2024 11:51:14 RESOURCE FORESTER by Morelia Cuevas
[2024-12-18 16:14] LABS: Basophils Absolute Auto 0.1 K/mm3 (0.0-0.1); Basophils Percent Auto 1.2 % (0.2-1.2); Eosinophils Absolute Auto 0.2 K/mm3 (0-0.3); Hematocrit 49.1 % (37.0-47.0); Hemoglobin 16.1 g/dL (12.0-15.0); Immature Granulocyte Absolute 0.01 K/mm3 (0.00-0.031); Immature Granulocyte Percent A 0.1 % (0-0.5); Lymphocytes Percent Auto 37.1 % (18.3-44.2); Mean Corpuscular HGB Conc 32.8 g/dl (32-36); Mean Corpuscular Hemoglobin 29.5 pg (26-34); Mean Corpuscular Volume 90.1 fl (80-100); Mean Platelet Volume 10.3 fl (7.4-10.4); Monocytes Absolute Auto 0.6 K/mm3 (0.1-0.6); Monocytes Percent Auto 8.3 % (2.6-8.5); Neutrophils Absolute Auto 3.4 K/mm3 (1.3-6.7); Neutrophils Percent Auto 50.3 % (45.5-73.1); Platelet Count Result 303 k/mm3 (150-375); Red Blood Count 5.45 M/mm3 (4.2-5.4); Red Cell Distribution Width 16.2 % (11.5-14.5); White Blood Count 6.7 K/mm3 (4.5-10.0)
[2024-12-18 16:20] LABS: Prothrombin Time 13.8 Seconds (11.1-14.7)
[2024-12-18 16:21] LABS: Partial Thromboplastin Time 24.6 Seconds (22.3-36.8)
[2024-12-18 17:02] LABS: Alanine Aminotransferase 22 U/L (6-35); Albumin Level 4.2 g/dL (3.5-5.1); Alkaline Phosphatase 71 U/L (38-126); Anion Gap 10 mmol/L (4-12); Aspartate Amino Transferase 24 U/L (14-36); Bilirubin,Total 0.6 mg/dL (0.2-1.3); Blood Urea Nitrogen 24 mg/dL (7-17); Calcium 9.3 mg/dL (8.4-10.2); Carbon Dioxide 26 mmol/L (22-30); Chloride 103 mmol/L (98-107); Estimated Glomerular Filt Rate > 60; Glucose 92 mg/dL (65-110); Potassium 3.9 mmol/L (3.4-5.0); Sodium 139 mmol/L (137-145)
[2024-12-18 17:06] LABS: Vitamin D 25 Hydroxy 22.9 ng/mL
--- OUTSIDE RECORDS SUMMARY | 2024-12-19 05:55 | XMS_ITS | Continuity of Care Document ---
Author Organization [facility] Address [address] [place] [address] [id number] Care Team Providers Care Rate Clerk Name Role Phone Doctor, Not On Staff Primary Care Physician Unav ailable Encounter [facility] Financial Number [id number] Date(s): 12/17/24 - 12/17/[address] [address] Discharge Disposition: Home or Self Care Attending Physician: Dustin Soto DO Admitting Physician: Dustin Soto DO Referring Physician: Dustin Soto DO Encounter Type: Outpatient Allergies, Adverse Reactions, Alerts Substance Criticality Severity Reaction Reaction Severity Status Levaquin Anaphylaxis Active Medications ALPRAZolam 0.25 mg oral tablet 0.25 mg, 1 tablet(s), Oral, bid, PRN, Tablet(s), 0, anxiety Start Date: 09/27/20 Status: Ordered Repeat number: 1 hydroCHLOROthiazide 25 mg oral tablet 25 mg, 1 tablet(s), Oral, daily, 90 tablet(s), Tablet(s), 0 Start Date: 09/27/20 Status: Ordered Quantity: 90.0 Unit: Repeat number: 1 levothyroxine 50 mcg (0.05 mg) oral tablet 50 mcg, 1 tablet(s), Oral, daily, 30 tablet(s), Tablet(s), 0 Start Date: 09/27/20 Status: Ordered Quantity: 30.0 Unit: Repeat number: 1 losartan 100 mg oral tablet 100 mg, 1 tablet(s), Oral, daily, 30 tablet(s), Tablet(s), 0 Start Date: 09/27/20 Status: Ordered Quantity: 30.0 Unit: Repeat number: 1 Milk of Magnesia 30 mL, Oral, qhs, Susp Start Date: 09/27/20 Status: Ordered Repeat number: 1 tiZANidine 4 mg oral tablet 4 mg, 1 tablet(s), Oral, tid, PRN, 90 tablet(s), Tablet(s), 0, muscle spasm Start Date: 09/27/20 Status: Ordered Quantity: 90.0 Unit: Repeat number: 1 traMADol 50 mg oral tablet 50 mg, 1 tablet(s), Oral, v0apatf, PRN, 18 tablet(s), pain, mild, Not to exceed 8 tablets (400 mg) in 24 hours Start Date: 09/27/20 Status: Ordered Quantity: 18.0 Unit: Repeat number: 1 Procedures Procedure Date Related Diagnosis Body Site Status gia salpenoopherectomy Co mpleted cyst removed from lt eye Completed cyst removed from roof of mouth Completed leep procedure x2/ part of cervix removed Completed rectal fissure repair Com pleted sigmoid colon removed Com pleted thyroid surgery x2 Comple guero Results Radiology Reports * Exam Date Time Procedure Performing Provider Status 12/17/24 10:[address] LUMBAR SPINE W/O CONTRAST Elaine Arguelles RT; Auth (Verified) Notes: (CT LUMBAR SPINE W/O CONTRAST) Reason For Exam: Spondylolisthesis, site unspecified CT LUMBAR SPINE W/O CONTRAST EXAM: CT LUMBAR SPINE W/O CONTRAST DATE: 12/17/2024 10:39 CLINICAL DATA: Spondylolisthesis, site unspecified Order Diagnosis: Spondylolisthesis, site unspecified COMPARISON: None FINDINGS: Helical images are obtained through the lumbar spine. Sagittal and coronal reconstructions were reviewed. There is a 5 mm minimal listhesis of L5 on S1 due to facet arthropathy. The remaining levels are in anatomic alignment. Degenerative disc disease is mild throughout. There is mild narrowing with some endplate sclerosis and small spurs. Vacuum phenomenon is seen at L1-2, L3-4 and L5-S1. Degenerative changes present in the lower thoracic spine without fracture or canal compromise. The L1-2 disc is mild disc bulging with minimal impact upon the canal. No central or foraminal stenosis. L2-3 disc profile is minimal disc bulging without central or foraminal stenosis. The L3-4 level has vacuum phenomenon is slightly larger disc bulging. There some mild narrowing the central canal as well as mild foraminal narrowing. Facet arthropathy is mild. L4-5 is more advanced facet arthropathy. There is a larger disc bulge with posterior element hypertrophic change. There may be mild degree of central spinal stenosis. Disc bulges are small protrusions extend into the foramina and there is more advanced posterior element hypertrophic change. A more advanced bilateral foraminal stenosis. The L5-S1 level has a grade 1 listhesis with facet arthropathy. No central stenosis but the foramina are narrowed and distorted and appear moderate to highly stenotic. Aortic atherosclerosis is seen. No evidence of aneurysm. IMPRESSION: Grade 1 listhesis at L5-S1 with facet arthropathy and resulting fairly advanced bilateral foraminal stenosis. Disc bulging and posterior hypertrophic change causing mild stenosis but more advanced bilateral foraminal stenosis. Some degenerative change at the remaining levels without high-grade stenosis Dictating Provider: Zane Lundy MD Releasing Physician: Zane Lundy MD Signature Electronically Authorized Authorized Date/Time: 17-DEC-2024 11:29 am * Exam Date Time Procedure Performing Provider Status 12/17/24 11:52 AM MRI LUMBAR SPINE W/WO CONTRAST Nasreen Gautam RT (M); Modified Notes: (MRI LUMBAR SPINE W/WO CONTRAST) Reason For Exam: Spinal stenosis, lumbar region with neurogenic claudication MRI LUMBAR SPINE W/WO CONTRAST EXAM: MRI LUMBAR SPINE W/WO CONTRAST DATE: 12/17/2024 11:52 CLINICAL DATA: Spinal stenosis, lumbar region with neurogenic claudication Order Diagnosis: Spinal stenosis, lumbar region with neurogenic cla COMPARISON: None FINDINGS: Multiplanar imaging of the lumbar spine was performed with and without 21 mL's of intravenous gadolinium. There is a 6 mm grade 1 listhesis of L5 on S1. This is likely due to facet arthropathy. The remaining levels are in anatomic alignment. There is mild diffuse desiccation and some loss of disc space height particularly at L3-4 and L5-S1. Mild endplate signal changes are seen at L1-2. At the margin of the field, at the T10 level, there is some abnormal increased T2 signal with decreased T1 signal. Mild compression fracture with some acute changes are possible but this is not well evaluated on this study. Clinical correlation and dedicated imaging May BE of value. The L1-2 disc is a small disc protrusion centrally and towards the right. Minimal impact upon the dura. No central stenosis. Mild foraminal narrowing is present bilaterally. L2-3 is normal disc profile with normal foramina. L3-4 has a broad-based protrusion across the midline. There is mild impact upon the dura with perhaps mildly diminished CSF around the nerve roots. AP diameter of the thecal sac is mildly diminished at 9 mm. Lateral recesses and foramina are mildly narrowed without root impingement. L4-5 has mild disc bulging with flattening of the dura. There is mild central stenosis with facet arthropathy. Lateral recesses and foramina are narrowed. This is mild on the left but [id number] on the right. L5-S1 is a grade 1 listhesis with facet arthropathy. Central canal is narrowed with diminished CSF around the nerve roots. This is probably a mild degree of central spinal stenosis. Lateral recesses and foramina are moderately narrowed bilaterally. After administration of gadolinium, there are some mild endplate enhancement at L1-2 and perhaps L5-S1 but this is likely degenerative in nature. The T10 superior endplate enhances as well. There some soft tissue enhancement posteriorly but this is mild in extent without fluid collection or suspicion for infection. IMPRESSION: Grade 1 listhesis at L5-S1 with advanced facet arthropathy resulting in moderate bilateral foraminal stenosis and mild central stenosis. Disc bulging and posterior hypertrophy at L3-4 and L4-5 resulting in foraminal and central stenosis relatively mild in extent. T12 abnormal superior endplate. A mild compression fracture is possible but this is at the margin of the field and not fully evaluated. Clinical correlation recommended. Dictating Provider: Zane Lundy MD Releasing Physician: Zane Lundy MD Signature Electronically Authorized Authorized Date/Time: 17-DEC-2024 12:49 pm Social History Social History Type Response Alcohol Never alcohol user Substance Abuse Never drug user Smoking Status Current every day sm oker;Never; Tobacco Cessation Counseling Requested Yes; Type: Cigarettes entered on: 09/27/20 Sex Sex Representation Female (finding) Patient Care team information Care Team Personnel Name: Doctor, Not On Staff Position: CPOE Physician Member Role: Primary Care Physician Care Team Related Persons Name: IRVIN DELEON Insurance Providers Guarantor name: LISY DIAS Health Plan Information #: 1 Payer: [facility] Member Number: [id number] Policy Number: NA Group Number: [id number] Health Plan Information #: 2 Payer: [facility] Member Number: [id number] Policy Number: NA Group Number: [id number]
== END 2024-12-18 15:08 | disposition home or self-care (01) ==
PROVIDERS: PCP Physician Assistant Medical
DX: Z01.818 Encounter for other preprocedural examination (principal); R94.31 Abnormal electrocardiogram [ECG] [EKG]
CPT/HCPCS: 36415; 71046; 80053; 82306; 85025; 85610; 85730; 93005

== ENCOUNTER 2025-02-25 14:21 | Outpatient (CLI) | payer BC, SELFPAY ==
--- NOTE | 2025-02-25 | ECG_ITS ---
Test Date: 2025-02-25 15:09:34 Measurements Intervals [place] Rate: 74 P: 52 VA: 166 QRS: -22 QRSD: 127 T: 55 QT: 386 QTc: 430 Interpretive Statements SINUS RHYTHM POSSIBLE LEFT ATRIAL ENLARGEMENT RIGHT BUNDLE BRANCH BLOCK LEFT VENTRICULAR HYPERTROPHY WITH ST-T CHANGE ABNORMAL ECG Compared to ECG 12/18/2024 15:45:49 ST (T wave) deviation no longer present Electronically Signed On 02-25-2025 15:11:38 CDT by Red Altamirano D.O.
[2025-02-25 14:58] LABS: Basophils Absolute Auto 0.1 K/mm3 (0.0-0.1); Eosinophils Absolute Auto 0.2 K/mm3 (0-0.3); Eosinophils Percent Auto 2.4 % (0-4.4); Hematocrit 48.6 % (37.0-47.0); Hemoglobin 16.5 g/dL (12.0-15.0); Immature Granulocyte Absolute 0.02 K/mm3 (0.00-0.031); Immature Granulocyte Percent A 0.3 % (0-0.5); Lymphocytes Percent Auto 32.9 % (18.3-44.2); Mean Corpuscular Hemoglobin 30.6 pg (26-34); Mean Platelet Volume 10.1 fl (7.4-10.4); Monocytes Absolute Auto 0.6 K/mm3 (0.1-0.6); Monocytes Percent Auto 8.7 % (2.6-8.5); Neutrophils Absolute Auto 3.8 K/mm3 (1.3-6.7); Neutrophils Percent Auto 54.7 % (45.5-73.1); Platelet Count Result 301 k/mm3 (150-375); Red Cell Distribution Width 14.5 % (11.5-14.5)
[2025-02-25 15:10] LABS: Alanine Aminotransferase 24 U/L (6-35); Albumin Level 4.6 g/dL (3.5-5.1); Alkaline Phosphatase 74 U/L (38-126); Anion Gap 12 mmol/L (4-12); Aspartate Amino Transferase 24 U/L (14-36); Bilirubin,Total 0.4 mg/dL (0.2-1.3); Blood Urea Nitrogen 25 mg/dL (7-17); Calcium 10.2 mg/dL (8.4-10.2); Carbon Dioxide 27 mmol/L (22-30); Chloride 99 mmol/L (98-107); Estimated Glomerular Filt Rate > 60; Glucose 129 mg/dL (65-110); Potassium 4.1 mmol/L (3.4-5.0); Sodium 138 mmol/L (137-145)
[2025-02-25 15:21] LABS: INR 0.9; Prothrombin Time 12.1 Seconds (11.1-14.7)
[2025-02-25 15:22] LABS: Partial Thromboplastin Time 26.7 Seconds (22.3-36.8)
--- OUTSIDE RECORDS SUMMARY | 2025-02-25 15:51 | XMS_ITS | Patient Health Record ---
Author Organization [facility] Address [address] [facility] [address] [place] [address] Care Team Providers Care Molecular Biology Scientist Name Role Phone Poonam Jeronimo Primary Care Provider Riaz COBIAN MD, ADAIR Unavailable [phone] iMsael THRASHER, Lauri Unavailable Unavailable ALLERGIES Allergen (clinical drug ingredient) Drug/Non Drug Allergy documented on EMR Reaction Allergy Type Onset Date Status Levaquin Unknown Drug Allergy Active REASON FOR REFERRAL No Information MEDICATIONS Medication SIG (Take, Route, Frequency, Duration) Notes Start Date End Date Status Cyclobenzaprine HCl 10 MG 0.5-1 tab Orally BID Active ALPRAZolam 0.5 MG 1 tablet Orally Twic e a day Active Levothyroxine Sodium 50 MCG 1 tablet on an empty stomach in the morning Orally Once a day for 30 day(s) Active Losartan Potassium-HCTZ 100-25 MG 1 tablet Orally Once a day for 30 day(s) Active Milk of Magnesia 400 MG/5ML 5 ml as need ed Orally Four times a day Active Aleve 220 MG 1 tablet with food o r milk as needed Orally every 12 hrs Active SOCIAL HISTORY Tobacco Use: Social History Observation Description Date Details (start date - stop date) Current Smoker NA - NA Sex Assigned At : Social History Observation Description Sex Assigned At Unknown Tobacco Use/Smoking Question Answer Notes Are you a current smoker How often do you smoke cigarettes? every day How many cigarettes a day do you smoke? 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 Anomalies of pancreas (765036058) PLAN OF TREATMENT Pending Test Test Name Order Date CT Scan : Abdomen and Pelvis with contra st 12/26/2018 Insurance Providers Payer Name Payer Address Payer Phone Subscriber Number Group Number Insured Name Patient Relationship to Insured Coverage Start Date Coverage End Date [facility] [address] [place], [place] [id number] Sumaya Razo Self - patient is the insured MEDICAL (GENERAL) HISTORY Medical History History ICD Code Hypertension Hypothyroidism 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 She was transferred to [facility] Surgery performed a lower an terior resection, rigid proctoscopy, transanal end to end anastamosis 06/12/18. Wound VAC 2017 Anal sphincter muscle surgery with Dr. Sandra angeles 2016 Thyroid surgery 1988, 2011 Bilateral oophorectomy Pilonidal cyst EGD 10/2011 Tk eryt hematous looking polyp in prepyloric area, sessile, 1 cm, removed. Normal duodenum and esophagus. Duodenal bx neg. Gastric polyp with focal int estinal metaplasia, reactive changes, no malignant change, neg for H. pylori. Repeat EGD 1 yr. Colonoscopy 10/2011 [facility] Diverticulosis right and left colon, 5 mm rectal polyp, removed. Multiple colon bx obtained. Normal TI and colon. Random bx normal. Hyperplastic polyp. Repeat 3 yrs.
--- OUTSIDE RECORDS SUMMARY | 2025-02-25 15:51 | XMS_ITS ---
Author Organization [facility] Address [address] [facility] [address] [place] [address] Care Team Providers Care Orthopedic Mechanic Name Role Phone Jordan Poonam Primary Care Provider Dustin Cantrell [phone] Encounters Encounter Location Date Provider Diagnosis [facility] - Outpatient [address] [place] [address] 02/03/2025 Dustin Soto PLAN OF TREATMENT Next Appt Details Provider Name:Dustin Calvo ot, 03/17/2025 08:00:00 AM, [address], [place], [address], Provider Name:Dustin Calvo ot, 03/30/2025 11:20:00 AM, [address], [facility] [address], [place], [address],
--- OUTSIDE RECORDS SUMMARY | 2025-02-25 15:51 | XMS_ITS | Clinical Summary ---
Author Organization [facility] Address [address] [place] [address] Care Team Providers Care Adjunct Professor Of Voice Name Role Phone Poonam Jordan Primary Care Provider [phone] Allergies Active Allergy Reactions Criticality Noted Date Comments Levofloxacin Anaphylaxis,Unknown High 04/01/2018 Could not talk or breath Medications ALPRAZolam 0.25 MG tablet Take 1-2 tablets by mouth 2 (two) times daily as needed. 0 03/25/2018 Active cyclobenzaprine 10 MG tablet Take 0.5-1 tablets by mouth 2 (two) times daily as needed. 0 03/17/2018 Active losartan-hydroch lorothiazide 100-25 MG tablet Take 1 tablet by mouth daily. 0 03/09/2018 Active ondansetron 4 MG tablet Take 1 tablet (4 mg total) by mouth every 8 (eight) hours as needed for Nausea. 20 tablet 04/05/2018 Active hydrocodone-acet aminophen 5-325 MG tablet Take 1 tablet by mouth every 6 (six) hours as needed. 15 tablet 08/08/2018 Active acetaminophen 325 MG tablet 07/01/2018 Activ e bisacodyl (DULCOLAX) 10 MG suppository 07/01/2018 Active clotrimazole-bet amethasone cream 07/09/2018 Ac tive lactobacillus Tab 07/01/2018 Active levothyroxine 50 MCG tablet 07/24/2018 Active levothyroxine 150 MCG tablet 07/01/2018 Acti ve losartan (COZAAR) 100 MG tablet 07/01/2018 Active magnesium hydroxide 400 MG/5ML suspension 07/01/2018 Active Active Problems Problem Noted Date Diagnosed Date Abdominal abscess 07/31/2018 Diverticulitis 04/01/2018 Family History Medical History Relation Comments Heart Disease Father Diabetes Sister 1 Relation Status Comments Father Mother Alive Sister 1 Alive Sister 2 Alive Social History Tobacco Use Types Packs/Day Years Used Date Smoking Tobacco: Some Days Smokeless Tobacco: Never Comments:last smoked february 262017 Alcohol Use Standard Drinks/Week Comments Yes 0 (1 standard drink = 0.6 oz pur e alcohol) rarely Comments Unknown Sex and Gender Information Value Date Recorded Sex Assigned at Not on file Legal Sex Female 10:39 PM CDT Gender Identity Not on file Sexual Orientation Not on file Last Filed Vital Signs Vital Sign Reading Time Taken Comments Blood Pressure 121/78 08/08/2018 4:31 AM CDT Pulse 78 08/08/2018 4:31 AM CDT Temperature 36.7 C (98.1 F) 08/08/2018 4:31 AM CDT Respiratory Rate 18 08/08/2018 4:31 AM CDT Oxygen Saturation 94% 08/08/2018 4:31 AM CDT Inhaled Oxygen Concentration - - Weight 107.8 kg (237 lb 10.5 oz) 08/06/2018 5:00 AM CDT Height 162.6 cm (5' 4 ) 07/31/2018 10:0 0 PM CDT Body Mass Index 40.79 07/31/2018 10:00 PM CDT Plan of Treatment Health Maintenance Due Date Last Done Comments Cervical Cancer Screening Pa p Smear (Age 30 to 64) Every 3 Years 1964 Colorectal Cancer Screening Colonoscopy (10 Years) 1964 Annual Physical 1967 Pneumococcal Vaccine: Pediatrics (0 to 5 Years) and At-Risk Patients (6 to 64 Years) (1 of 2 - PCV) 1970 Hepatitis C 1982 DTaP, Tdap and Td Vaccines ( 1 - Tdap) 1983 Cervical Cancer Screening Pa p with HPV Testing (Age 30 to 64) Every 5 Years 1994 Cervical Cancer Screening wi th HPV 1994 Mammogram Screening 2004 Zoster Vaccines (1 of 2) 2014 COVID-19 Vaccine (3 - 2023-2 5 season) 2024 04/11/2021, 03/14/2021 Influenza Adult (#1) 2024 RSV Immunization or 60+ Years (1 - 1-dose 75+ series) 2039 Meningococcal B Vaccine Aged Out No l onger eligible based on patient's age to complete this topic Meningococcal Vaccine Aged Out No jose antonio christin eligible based on patient's age to complete this topic RSV Immunizations Under 20 Months Aged Out No longer eligible b ased on patient's age to complete this topic Insurance Advance Directives * Full Code (Latest Code Status on File) Date Activated Date Inactivated Comments 07/31/2018 9:34 PM 08/08/2018 3:12 PM * Full Code Date Activated Date Inactivated Comments 06/06/2018 1:56 PM 06/24/2018 6:54 PM * Full Code Date Activated Date Inactivated Comments 04/01/2018 8:05 PM 04/05/2018 4:46 PM Care Teams Adjunct Professor Of Voice Relationship Specialty Start Date End Date Poonam Jordan PA PCP - General 04/01/18
--- OUTSIDE RECORDS SUMMARY | 2025-02-25 15:51 | XMS_ITS ---
Author Organization [facility] Address [address] [facility] [address] [place] [address] Care Team Providers Care Sheet Rock Nailer Name Role Phone Poonam Jordan Primary Care Provider Dustin Cantrell Unavailable [phone] REASON FOR VISIT sx reschedule Encounters Encounter Location Date Provider Diagnosis [facility] [address] [facility] [address] [place] [address] 02/20/2025 Dustin Soto Preop testing Z01.818 ASSESSMENTS Encounter Date Diagnosis Assessment Notes Treatment Notes Treatment Clinical Notes 02/20/2025 Preop testing (ICD-10 - Z01.818) PLAN OF TREATMENT Pending Test Test Name Order Date Electrocardiogram (EKG) 02/20/2025 CBC With Differential/Platelet PT AND PTT 02/20/2025 Vitamin D, 25-Hydroxy 02/20/2025 Chem-Comprehensive 02/20/2025 INR 02/20/2025 Next Appt Details Provider Name:Dustin Calvo ot, 03/17/2025 08:00:00 AM, [address], [place], [address], Provider Name:Dustin Calvo ot, 03/30/2025 11:20:00 AM, [address], [facility] [address], [place], [address],
--- OUTSIDE RECORDS SUMMARY | 2025-02-25 15:51 | XMS_ITS ---
Author Organization [facility] Address [address] [facility] [address] [place] [address] Care Team Providers Care Patent Chemist Name Role Phone Nikki Poonam Primary Care Provider Dustin Cantrell [phone] Encounters Encounter Location Date Provider Diagnosis [facility] [address] [facility] [address] [place] [address] 02/16/2025 Dustin Soto PLAN OF TREATMENT Next Appt Details Provider Name:Dustin Calvo ot, 03/17/2025 08:00:00 AM, [address], [place], [address], Provider Name:Dustin Calvo ot, 03/30/2025 11:20:00 AM, [address], [place] [address], [place], [address],
--- OUTSIDE RECORDS SUMMARY | 2025-02-25 15:51 | XMS_ITS | Patient Health Record ---
Author Organization [facility] Address [address] [place] [address] Care Team Providers Care Surveillance Camera Technician Name Role Phone Nikki Poonam Primary Care Provider Dustin Cantrell Unavailable [phone] ALLERGIES Allergen (clinical drug ingredient) Drug/Non Drug Allergy documented on EMR Reaction Allergy Type Onset Date Status Levaquin swelling Drug Allergy Active RESULTS Component Value Reference Range Notes MRI : Lumbar spine with and without Contrast Reviewed date:12/18/2024 08:11:57 AM Interpretation:facilty obtained auth Performing Lab: Notes/Report: facilty obtained auth X ray : Lumbar spine 5 views , AP, Lateral, Spot, Flexion and Extension Reviewed date:12/10/2024 09:37:49 AM Interpretation:907 Performing Lab: Notes/Report: 907 CT Lumbar Spine with Sagitta l and Coronal Reconstruction Reviewed date:12/18/2024 08:12:08 AM Interpretation:facility approved Performing Lab: Notes/Report: facility approved REASON FOR REFERRAL No Information MEDICATIONS Medication SIG (Take, Route, Fr equency, Duration) Notes Start Date End Date Status Gabapentin Active Jardiance Active Ezetimibe Active Omeprazole Active tiZANidine HCl Activ e Naprosyn Active Ozempic (1 MG/DOSE) Active ALPRAZolam Active traMADol HCl Active Eureka PRN Active Levothyroxine Sodium Active Acidophilus Active Losartan Potassium A ctive hydroCHLOROthiazide Active PROBLEMS Problem Type ICD Code Onset Dates Problem Status W/U Status Risk SNOMED Code Notes Problem Spondylolisthesis (M43.10) Active confirmed Spondylolisthes is (361219092) Problem Degenerative spondylolisthesis (M43.10) Active confirmed Degenerative spondylolisthesis (9519347) Problem Spondylolisthesis, lumbar region (M43.16) Active confirmed [id number] Problem Lumbago with sciatica, unspecified side (M54.40) Active confirmed 184320384 Problem Spondylosis without myelopathy or radiculopathy, lumbar region (M47.816) Active confirmed 660327876 Problem Spondylolisthesis of lumbar region (M43.16) Active confirmed Acquired spondylolisthesis (969849142) Problem Facet degeneration of lumbar region (M47.816) Active confirmed Lumbosacral spondylosis without myelopathy (88344673) VITAL SIGNS Height 64 in 12/17/2024 Weight 225 lbs 12/17/2024 BMI 38.62 kg/m2 12/17/2024 PROCEDURES Procedure Date Ordered Date Performed Result Body Sit e DME_Bone Stim, Lumbar Spine 12/17/2024 bcbs [place]- reddy to fit lumbar fusion 12/17/2024 anthem [facility] [place] bcbs Encounters Encounter Location Date Provider Diagnosis [facility] [address] [place] [address] [address] 12/11/2024 Dustin Soto [facility] [address] [place] [address] [address] 12/10/2024 Dustin Soto Lumbar stenosis with neurogenic claudication M48.062 ; Spondylolisthesis of lumbar region M43.16 ; Other low back pain M54.59 ; Lumbar radiculopathy M54.16 ; Disc Degeneration, Lumbar Region with Leg Pain M51.361 and Facet degeneration of lumbar region M47.816 [facility] [address] [place] [address] 02/16/[address] [facility] - Outpatient [address] [place] [address] 02/03/2025 Dustin Soto [facility] [address] [place] [address] 12/25/2024 Dustin Soto [facility] [address] [place] [address] 01/21/2025 Dustin Soto [facility] [address] [facility] [address] [place] [address] 02/20/2025 Dustin Soto Preop testing Z01.81 8 [facility] [address] [facility] [address] [place] [address] 12/17/2024 Dustin Soto Lumbar stenosis with neurogenic claudication M48.062 ; Lumbar radiculopathy M54.16 ; Spondylolisthesis of lumbar region M43.16 ; Other low back pain M54.59 and Disc Degeneration, Lumbar Region with Leg Pain M51.361 ASSESSMENTS Encounter Date Diagnosis Assessment Notes Treatment Notes Treatment Clinical Notes 12/10/2024 Lumbar stenosis with neurogenic claudication (ICD-10 - M48.062) 12/10/2024 Spondylolisthesis of lumbar region (ICD-10 - M43.16) 12/17/2024 Lumbar stenosis with neurogenic claudication (ICD-10 - M48.062) 12/10/2024 Other low back pain (ICD-10 - M54.59) 02/20/2025 Preop testing (ICD-1 0 - Z01.818) 12/17/2024 Lumbar radiculopathy (ICD-10 - M54.16) 12/10/2024 Lumbar radiculopathy (ICD-10 - M54.16) 12/17/2024 Spondylolisthesis of lumbar region (ICD-10 - M43.16) 12/10/2024 Disc Degeneration, Lumbar Region with Leg Pain (ICD-10 - M51.361) 12/17/2024 Other low back pain (ICD-10 - M54.59) 12/10/2024 Facet degeneration o f lumbar region (ICD-10 - M47.816) 12/17/2024 Disc Degeneration, Lumbar Region with Leg Pain (ICD-10 - M51.361) PLAN OF TREATMENT Pending Test Test Name Order Date Electrocardiogram (EKG) 12/17/2024 Electrocardiogram (EKG) 02/20/2025 CBC With Differential/Platelet 5 CBC With Differential/Platelet 0 CBC With Differential/Platelet 5 PT AND PTT 02/20/2025 PT AND PTT 12/17/2024 PT AND PTT 09/13/2020 Vitamin D, 25-Hydroxy 02/20/2025 Vitamin D, 25-Hydroxy 12/17/2024 Chem-Comprehensive 09/13/2020 Chem-Comprehensive 02/20/2025 Chem-Comprehensive 12/17/2024 X ray : Chest 2 views, PA, Lateral 12/17 DME_Bone Stim, Lumbar Spine 12/17/2024 lumbar fusion 12/17/2024 INR 12/17/2024 INR 02/20/2025 Next Appt Details Provider Name:Dustin Calvo ot, 03/17/2025 08:00:00 AM, [address], [place], [address], Provider Name:Dustin Calvo ot, 03/30/2025 11:20:00 AM, [address], [place], [address], Insurance Providers Payer Name Payer Address Payer Phone Subscriber Number Group Number Insured Name Patient Relationship to Insured Coverage Start Date Coverage End Date [facility] [address] Health Claims Dept [place] [id number] Sumaya Razo Self - patient is the insured MEDICAL (GENERAL) HISTORY Medical History History ICD Code Hypertension Diabetes Thyroid disease 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
[2025-02-25 16:09] LABS: Vitamin D 25 Hydroxy 21.8 ng/mL
== END 2025-02-25 14:22 | disposition home or self-care (01) ==
LOC: ANHLAB 14:23
PROVIDERS: PCP Physician Assistant Medical; Visit Provider Orthopaedic Surgery
DX: Z01.818 Encounter for other preprocedural examination (principal); I45.10 Unspecified right bundle-branch block; I51.7 Cardiomegaly
CPT/HCPCS: 36415; 80053; 82306; 85025; 85610; 85730; 93005

== ENCOUNTER 2025-11-25 00:58 | Day surgery (SDC) | payer BC, SELFPAY ==
[2025-10-29 14:06] VITALS: BMI 39.5
[2025-11-25 09:30] VITALS: BP 131/81; PULSE 80; RESP 18; TEMP 36.7; O2SAT 98
--- NOTE | 2025-11-25 09:42 | P.PNAN_ITS ---
Anes - Initial Pre Proc Eval Procedure: Operation Date: 11/25/25 10:30 Proposed Procedures p EGD & Screening Colonoscopy - Ayad Kuo MD Date/Time: 11/25/25 09:42 Surgeon: Ayad Kuo MD Pre Op Diagnosis: Esophagitis, unspecified without bleeding Patient Data Age: 60 Gender: F Height: 1.63 m Weight: 106.1 kg Allergies Allergy/AdvReac Type Severity Reaction Status Date / Time levofloxacin Allergy Severe Anaphylaxis Verified 11/25/25 09:31 citalopram (From Celexa) AdvReac Intermediate Nausea Verified 11/25/25 09:31 rosuvastatin (From Crestor) AdvReac Gastrointestinal Verified 11/25/25 09:31 Upset Home Medications ?Medication ?Instructions ?Recorded ?Confirmed ?Type naproxen sodium 220 mg tablet 440 mg PO Q8H PRN Pain 0 05/27/20 11/25/25 History (Aleve) acidophilus 100 million 1 cap PO DAILY 06/03/2410/28 History cell-pectin, citrus 10 mg capsule mupirocin 2 % topical ointment 1 applic topical TID #2 2 grams 03/13/25 10/29/25 Rx (Centany) alprazolam 0.5 mg tablet (Xanax) 0.5 mg PO BID PRN anx iety #60 tabs 04/13/25 10/29/25 Rx tramadol 50 mg tablet 50 mg PO Q6H PRN pain #30 ta bs 04/13/25 10/29/25 Rx tizanidine 4 mg tablet See Rx Instructions .Route 0 06/09/25 10/29/25 Rx .COMPLEX muscle spasticity #360 tabs hydrochlorothiazide 25 mg tablet 12.5 mg (1/2 x 25 mg) PO QAM #45 09/21/25 11/25/25 Rx tabs levothyroxine 50 mcg tablet 50 mcg PO DAILY #90 tabs 1 11/25/25 Rx losartan 100 mg tablet 100 mg PO QAM #90 tabs 09/2111/25/25 Rx atorvastatin 20 mg tablet (Lipitor) 20 mg PO QHS #30 t abs 10/05/25 11/25/25 Rx cholecalciferol (vitamin D3) 125 125 mcg PO DAILY 09/2611/25/25 History mcg (5,000 unit) capsule empagliflozin 25 mg tablet 25 mg PO DAILY #90 tabs 09/1911/25/25 Rx (Jardiance) ezetimibe 10 mg tablet (Zetia) 10 mg PO DAILY #90 tabs 10/07/25 11/25/25 Rx gabapentin 300 mg capsule 900 mg (3 x 300 mg) PO TID P RN 10/19/25 11/25/25 Rx Pain #270 caps omeprazole 40 mg capsule,delayed 40 mg PO DAILY #90 ca ps 10/19/25 10/29/25 Rx release semaglutide 2 mg/dose (8 mg/3 mL) 2 mg (0.75 mL) subcu t WEEKLY #3 mL 11/23/25 11/25/25 Rx subcutaneous pen injector (Ozempic) Patient hx anesthesia problems: none Family hx anesthesia problems: none Results Review: All pre-operative results and documents have been reviewed as part of the pre- operative evaluation. [facility] Past Medical History Medical History FH: breast cancer in first degree relative mother Subcutaneous mass Abscess of neck Encounter for recheck of abscess following incision and drainage Urolithiasis 2024 Spondylosis of lumbar spine Diabetes mellitus Weight loss counseling, encounter for History of pilonidal cyst Colitis History of migraine headaches Arthritis Hypertension Surgical History Surgical History History of incisional hernia repair 06/18/24 1. Open 15cm incarcerated incisional hernia repair with mesh 2. Removal of old mesh foreign body 3. Bilateral myofascial advancement (Transversus abdominus release--8cm on right and 7cm on left) 4. Open appendectomy History of incisional hernia repair 2019 - open incisional hernia repair with mesh History of loop electrical excision procedure (LEEP) History of partial surgical removal of colon Open sigmoid colectomy for diverticulitis with takedown of colovesical fistula in 2017 H/O bilateral oophorectomy at age 15, open H/O thyroidectomy Family History Family History Father Hypertension Family history of elevated blood lipids Patient's father is Diabetes mellitus Family history of anemia Family history of cardiovascular disease Family history of colitis Family history of irritable bowel syndrome Mother Hypertension Family history of elevated blood lipids Family history of malignant neoplasm of breast in first degree relative Family history of anemia Sibling Family history of lupus erythematosus Other Asthma Cerebrovascular accident Depression Family history of Alzheimer's disease Family history of arthritis Family history of blood dyscrasia Family history of congestive heart failure Family history of malignant neoplasm Family history of obesity Family history of osteoporosis Social History Social History Social History: 05/21/25 very confident with medical forms 06/18/25 patient declined SDOH Smoking packs per day: 1 Smoking cigarettes per day: 20.0 Years smoked: 45 Smoking pack-years: 45.00 Smoking status: Former smoker Tobacco type: cigarettes Second hand tobacco smoke exposure: No Smoking end date: 04/24/24 Alcohol intake: never Substance use: never Substance use type: does not use Lack of Transportation: No Lack of Food: Never True Current Housing: I Have Housing Concerned About Future Housing: No Difficulty Paying Gas/Electric Bills: No Difficulty Paying for Meds: No Currently Unemployed: No Education: High School Diploma/GED Difficulty w/ Childcare or Family Care: No Living arrangements: alone Spiritual care concerns: No Anes - Eval Final PreProcedure Day of Procedure 11/25/25 09:42 Patient weight: morbidly obese Heart: regular rate and rhythm Lungs: clear to auscultation Airway: Mallampati scale class II Neurological: alert and oriented Last oral intake: >/= 8 hours ASA classification: III Emergent: no Anesthetic plan: proceed Anesthesia type and monitoring: general GIVS and standard monitoring Results Review: All pre-operative results and documents have been reviewed as part of the pre- operative evaluation. Informed Consent: The patient's anesthetic plan and its attendant risks and benefits were discussed with the patient/family/POA. Questions were solicited and answers provided to the satisfaction of the patient/family/POA.
[2025-11-25] MEDS: LACTATED RINGERS 1,000 ML 150 ML IV CONT (09:43)
--- NOTE | 2025-11-25 10:12 | PM.HPGS ---
History of Present Illness History of Present Illness Consent: Risks, benefits, and alternatives have been discussed and questions answered. Patient agrees to proceed with procedure. Chief complaint: Esophagitis, unspecified without bleeding Narrative: Sumaya Razo is a 60 year old female with complaint of chronic GERD. Patient had history of diverticulitis. Review of Systems Review of Systems: All systems reviewed & are unremarkable except as noted in HPI and below Constitutional: Constitutional: Denies chills, Denies fever(s), Denies headache(s) and Denies weight loss Eyes: Eyes: Denies change in vision ENT: Denies dizziness, Denies headache(s), Denies neck mass and Denies throat swelling Cardiovascular: Cardiovascular: Denies chest pain, Denies lightheadedness and Denies dyspnea Respiratory: Respiratory: Denies cough, Denies dyspnea and Denies wheezing Gastrointestinal: Gastrointestinal: Denies abdominal pain, Denies change in bowel habits, Denies nausea and Denies vomiting Genitourinary: Genitourinary: Denies hematuria and Denies dysuria Musculoskeletal: Musculoskeletal: Reports as per HPI Integumentary/Breasts: Skin/Breast: Reports as per HPI Neurologic: Denies dizziness and Denies headache(s) Allergic/Immunologic: Allergic/Immunologic: Denies throat swelling and Denies wheezing PMFSH Past Medical History Medical History (Updated 11/25/25 @ 10:14 by Angela Flores MD) Acute diverticulitis FH: breast cancer in first degree relative mother Subcutaneous mass Abscess of neck Encounter for recheck of abscess following incision and drainage Urolithiasis 2024 Spondylosis of lumbar spine Diabetes mellitus Weight loss counseling, encounter for History of pilonidal cyst Colitis History of migraine headaches Arthritis Hypertension Surgical History Surgical History History of incisional hernia repair 06/18/24 1. Open 15cm incarcerated incisional hernia repair with mesh 2. Removal of old mesh foreign body 3. Bilateral myofascial advancement (Transversus abdominus release--8cm on right and 7cm on left) 4. Open appendectomy History of incisional hernia repair 2019 - open incisional hernia repair with mesh History of loop electrical excision procedure (LEEP) History of partial surgical removal of colon Open sigmoid colectomy for diverticulitis with takedown of colovesical fistula in 2017 H/O bilateral oophorectomy at age 15, open H/O thyroidectomy Family History Family History Father Hypertension Family history of elevated blood lipids Patient's father is Diabetes mellitus Family history of anemia Family history of cardiovascular disease Family history of colitis Family history of irritable bowel syndrome Mother Hypertension Family history of elevated blood lipids Family history of malignant neoplasm of breast in first degree relative Family history of anemia Sibling Family history of lupus erythematosus Other Asthma Cerebrovascular accident Depression Family history of Alzheimer's disease Family history of arthritis Family history of blood dyscrasia Family history of congestive heart failure Family history of malignant neoplasm Family history of obesity Family history of osteoporosis Social History Social History Social History: 05/21/25 very confident with medical forms 06/18/25 patient declined SDOH Smoking packs per day: 1 Smoking cigarettes per day: 20.0 Years smoked: 45 Smoking pack-years: 45.00 Smoking status: Former smoker Tobacco type: cigarettes Second hand tobacco smoke exposure: No Smoking end date: 04/24/24 Alcohol intake: never Substance use: never Substance use type: does not use Lack of Transportation: No Lack of Food: Never True Current Housing: I Have Housing Concerned About Future Housing: No Difficulty Paying Gas/Electric Bills: No Difficulty Paying for Meds: No Currently Unemployed: No Education: High School Diploma/GED Difficulty w/ Childcare or Family Care: No Living arrangements: alone Spiritual care concerns: No Meds Home Medications and Allergies Home Medications ?Medication ?Instructions ?Recorded ?Confirmed ?Type naproxen sodium 220 mg tablet 440 mg PO Q8H PRN Pain 05/27/20 11/25/25 History (Aleve) acidophilus 100 million 1 cap PO DAILY 06/03/24 11/25/25 History cell-pectin, citrus 10 mg capsule mupirocin 2 % topical ointment 1 applic topical TID #22 grams 03/13/25 10/29/25 Rx (Centany) alprazolam 0.5 mg tablet (Xanax) 0.5 mg PO BID PRN anxiety #60 tabs 04/13/25 10/29/25 Rx tramadol 50 mg tablet 50 mg PO Q6H PRN pain #30 tabs 04/13/25 10/29/25 Rx tizanidine 4 mg tablet See Rx Instructions .Route 06/09/25 10/29/25 Rx .COMPLEX muscle spasticity #360 tabs hydrochlorothiazide 25 mg tablet 12.5 mg (1/2 x 25 mg) PO QAM #45 09/21/25 11/25/25 Rx tabs levothyroxine 50 mcg tablet 50 mcg PO DAILY #90 tabs 09/21/25 11/25/25 Rx losartan 100 mg tablet 100 mg PO QAM #90 tabs 09/21/25 11/25/25 Rx atorvastatin 20 mg tablet (Lipitor) 20 mg PO QHS #30 tabs 10/05/25 11/25/25 Rx cholecalciferol (vitamin D3) 125 125 mcg PO DAILY 10/05/25 11/25/25 History mcg (5,000 unit) capsule empagliflozin 25 mg tablet 25 mg PO DAILY #90 tabs 10/05/25 11/25/25 Rx (Jardiance) ezetimibe 10 mg tablet (Zetia) 10 mg PO DAILY #90 tabs 10/07/25 11/25/25 Rx gabapentin 300 mg capsule 900 mg (3 x 300 mg) PO TID PRN 10/19/25 11/25/25 Rx Pain #270 caps omeprazole 40 mg capsule,delayed 40 mg PO DAILY #90 caps 10/19/25 10/29/25 Rx release semaglutide 2 mg/dose (8 mg/3 mL) 2 mg (0.75 mL) subcut WEEKLY #3 mL 11/23/25 11/25/25 Rx subcutaneous pen injector (Ozempic) Allergies Allergy/AdvReac Type Severity Reaction Status Date / Time levofloxacin Allergy Severe Anaphylaxis Verified 11/25/25 09:31 citalopram (From Celexa) AdvReac Intermediate Nausea Verified 11/25/25 09:31 rosuvastatin (From Crestor) AdvReac Gastrointestinal Verified 11/25/25 09:31 Upset Exam Const: General: no acute distress Orientation/consciousness: patient oriented x3 Resp: Effort & Inspection: normal respiratory effort Auscultation: clear to auscultation bilaterally Cardio: Rate: regular rate Rhythm: regular rhythm GI: Inspection: non-distended, incision (dry and intact with no erythema or drainage) and obesity GI Palp: Yes Soft to palpation, Yes Tenderness to palpation present (GI) (incisional) and No Guarding due to palpation present (GI) Other: Left-sided retrorectus drain with scant serosanguineous drainage. Right-sided subcutaneous drain with minimal bloody output, decreasing over the past few days. Assessment and Plan Assessment and plan (1) Chronic GERD: Code(s): K21.9 - Gastro-esophageal reflux disease without esophagitis Status: Acute Plan 60-year-old female with chronic GERD. Patient also had a history of acute diverticulitis. She is here for EGD and colonoscopy to rule out Granados esophagus, colonic polyp .
--- NOTE | 2025-11-25 10:31 | SUR.OPER ---
EGD ended at 1024, colon began at 1030
[2025-11-25 10:44] VITALS: BP 98/64; PULSE 78; RESP 15; O2SAT 99
[2025-11-25 10:54] VITALS: BP 104/65; PULSE 70; RESP 20; O2SAT 100
[2025-11-25 11:04] VITALS: BP 114/80; PULSE 67; RESP 19; O2SAT 99
== END 2025-11-25 11:22 | disposition home or self-care (01) ==
PROVIDERS: Internal Medicine Gastroenterology; PCP Physician Assistant Medical; Referring Provider Physician Assistant Medical; Visit Provider Internal Medicine Gastroenterology
PROC: 0DJ08ZZ Inspection of Upper Intestinal Tract, Via Natural or Artificial Opening Endoscopic (ICD-10-PCS; CPT 45378; principal; 2025-11-25 10:30)
DX: K21.9 Gastro-esophageal reflux disease without esophagitis (principal); Z12.11 Encounter for screening for malignant neoplasm of colon; K57.30 Diverticulosis of large intestine without perforation or abscess without bleeding; Z87.19 Personal history of other diseases of the digestive system; E11.9 Type 2 diabetes mellitus without complications; Z87.891 Personal history of nicotine dependence; E66.01 Morbid (severe) obesity due to excess calories; Z68.41 Body mass index [BMI] 40.0-44.9, adult
CPT/HCPCS: 43235; 45378; 82948; J2003; J2704; J7120